=== PATIENT | male | born 1975 | race Caucasian/White ===

== ENCOUNTER 2016-07-25 19:16 | Emergency (ER) | payer OTHER ==
[~2016-07-25] VITALS: Ht 182.9 cm; Wt 120.0 kg
[~2016-07-25 19:16] MED LIST: ALLO300T2 PO; FLM4 PO; NRV5 PO; PRD10 PO
[2016-07-25 19:21] VITALS: TEMP 36.5; Ht 182.9 cm; Wt 120.0 kg
[2016-07-25] MEDS ORDERED: ONDANSETRON INJ 2 MG/ML 2 ML VIAL IV STA ×2 (19:29→20:43)
[2016-07-25] MEDS ORDERED: KETOROLAC TROMETHAMINE 30 MG/ML VIAL IV STA (19:29)
[2016-07-25] MEDS ORDERED: SODIUM CHLORIDE 0.9% 1000ML 1,000 ML IV STA (19:29)
[2016-07-25] MEDS: MoRPHine SULFATE 4 MG/ML 1 ML CARP\\VIAL IV PRN ×2 (19:41→21:03)
[2016-07-25 19:49] LABS: BASO % 0.3 %; BASO ABS # 0.03 K/uL (0-0.2); COMPLETE YES; EOS % 0.5 %; HEMATOCRIT 42.1 % (42-52); IG% 0.3 %; LYMPH % 19.9 %; LYMPH ABS # 1.86 K/uL (1.2-3.4); MEAN CELL VOLUME 85.6 fL (80-100); MEAN CORPUSCULAR HEMOGLOBIN 30.7 pg (25-34); MEAN CORPUSCULAR HGB CONC 35.9 g/dl (32-36); MEAN PLATELET VOLUME 9.2 fL (7.4-10.4); MONO % 10.1 %; NEUT % 68.9 %; PLATELET COUNT 217 K/uL (130-400); RED BLOOD COUNT 4.92 M/uL (4.7-6.1); WHITE BLOOD COUNT 9.36 K/uL (4.8-10.8)
[2016-07-25 19:56] LABS: MANUAL MICROSCOPIC REQUIRED? NO; REVIEW REQ? YES; URINE APPEARANCE CLOUDY (CLEAR); URINE BILIRUBIN NEG (NEG); URINE COLOR YELLOW; URINE NITRITE NEG (NEG); URINE SPECIFIC GRAVITY 1.019 (1.000-1.030); UROBILINOGEN NEG (NEG); ZZUR CULT IF INDIC CLEAN CATCH YES
[2016-07-25] MEDS ORDERED: TAMS0.4C38 PO ×2 (19:56→20:58)
[2016-07-25] MEDS ORDERED: ALLO300T2 PO (19:56)
[2016-07-25 20:12] LABS: ALT/SGPT 34 U/L (12-78); AST/SGOT 18 U/L (15-37); BLOOD UREA NITROGEN 18 mg/dl (7-18); CALCIUM 8.9 mg/dl (8.5-10.1); CARBON DIOXIDE 28 mmol/L (21-32); CHLORIDE 104 mmol/L (98-107); GLUCOSE 109 mg/dl (70-99); POTASSIUM 3.3 mmol/L (3.5-5.1); SODIUM 143 mmol/L (136-145)
[2016-07-25 20:14] LABS: ALKALINE PHOSPHATASE 63 U/L (45-117)
--- NOTE | 2016-07-25 20:17 | DIAGNOSTIC IMAGING REPORT ---
CT SCAN OF THE ABDOMEN AND PELVIS WITHOUT CONTRAST CLINICAL HISTORY: flank pain COMPARISON STUDY: 01/24/2016 TECHNIQUE: CT scan of the abdomen and pelvis was performed from the lung bases to the proximal femurs. Images are reviewed in the axial, sagittal, and coronal planes. IV contrast was not administered for this examination. CT DOSE: 2169.95 mGy.cm FINDINGS: Lower chest: There are minor basilar atelectatic changes present. Liver: There is mild hepatic steatosis. No focal masses are visualized in this noncontrast study. Gallbladder: Cholelithiasis Spleen: There is mild splenomegaly (14 cm) Pancreas: Unremarkable. Adrenal glands: Unremarkable. Kidneys: There is right-sided hydronephrosis and mild perinephric stranding. There is a 2 mm lower pole right renal calculus. There is a punctate lower pole left renal calculus. There is an obstructing 6 mm proximal right ureteral calculus at the L3 level. Bowel: There are no transition zones indicate bowel obstruction. There is no acute diverticulitis. By history the appendix is surgically absent. Peritoneum: There is no intraperitoneal free air or abdominal ascites. Vasculature: The abdominal aorta is normal in course and caliber. Adenopathy: None. Pelvic viscera: There are prostatic calcifications present. There is mild bladder wall thickening. Skeletal structures: No destructive osseous lesions are seen. IMPRESSION: 1. Obstructing 6 mm proximal right ureteral calculus 2. Bilateral nephrolithiasis 3. No evidence of bowel obstruction. No evidence of free air 4. Mild bladder wall thickening 5. Cholelithiasis 6. Hepatic steatosis. Mild splenomegaly. Electronically signed by: Jhonathan Mckenzie M.D. 07/25/2016 8:15 PM Dictated Date/Time: 07/25/2016 8:11 PM
[2016-07-25] MEDS ORDERED: TAMSULOSIN HCL 0.4 MG CAP PO ONE (20:30)
[2016-07-25] MEDS ORDERED: OXYC-106 PO (20:58)
[2016-07-25] MEDS ORDERED: ONDA4TAB10 SL (20:58)
[2016-07-25] MEDS ORDERED: PERCOCET HOME PACK PO ONE (21:00)
[2016-07-25] MEDS ORDERED: ONDANSETRON HOME PACK 4MG OD TAB PO ONE (21:00)
--- NOTE | 2016-07-25 21:00 | EMERGENCY ROOM VISIT NOTE ---
History Report prepared by Srinath: Lisette Quintero Under the Supervision of: Nedra CastilloO. First contact with patient: 19:25 Chief Complaint: FLANK PAIN Stated Complaint: R SIDE FLANK PAIN History of Present Illness The patient is a 41 year old male who presents to the Emergency Room with complaints of severe and persistent right sided flank pain starting about 2 hours ago. He also complains of nausea and vomiting. He has a history of blood clots. He denies fevers, chills, or any other complaints. He has a history of kidney stones. Source of History: patient Onset: about 2 hours ago Position: other (right sided flank ) Symptom Intensity: severe Timing: other (persistent) Associated Symptoms: + nausea, + vomiting, No chills, No fevers Review of Systems See HPI for pertinent positives & negatives. A total of 10 systems reviewed and were otherwise negative. Past Medical & Surgical Medical Problems: (1) Gout (2) HTN (hypertension) (3) Malignant melanoma of skin (4) Obesity (5) SVT (supraventricular tachycardia) Surgical Problems: (1) History of inguinal hernia repair (2) History of local excision of skin lesion (3) S/P appy Family History Kidney stones Social History Smoking Status: Never Smoker Drug Use: none Marital Status: in relationship Housing Status: lives with roommate Occupation Status: employed Current/Historical Medications Scheduled Allopurinol (Zyloprim), 450 MG PO DAILY Amlodipine Besylate (Amlodipine Besylate), 5 MG PO DAILY Ondasetron Odt (Zofran Odt), 4 MG SL Q6H Tamsulosin Hcl (Flomax), 0.4 MG PO HS Tamsulosin Hcl (Flomax), 0.4 MG PO HS Scheduled PRN Oxycodone/Acetaminophen 10MG/325MG (Percocet 10MG/325MG), 1 TAB PO Q4H PRN for Pain Allergies Coded Allergies: Aspirin (Verified Allergy, Unknown, 02/18/16) Codeine (Verified Adverse Reaction, Intermediate, MENTAL CHANGES/WILD, ) Physical Exam Vital Signs Date Time Temp Pulse Resp B/P Pulse Ox O2 Delivery O2 Flow Rate FiO2 07/25/16 19:21 36.5 63 18 161/104 98 Room Air Physical Exam CONSTITUTIONAL/VITAL SIGNS: Reviewed / noted above. GENERAL: Non-toxic in appearance. INTEGUMENTARY: Warm, dry, and [place]. HEAD: Normocephalic. EYES: without scleral icterus or trauma. ENT/OROPHARYNX: clear and moist. LYMPHADENOPATHY/NECK: Is supple without lymphadenopathy or meningismus. RESPIRATORY: Lungs clear and equal. CARDIOVASCULAR: Regular rate and rhythm. GI/ABDOMEN: Soft and nontender. No organomegaly or pulsatile mass. No rebound or guarding. Normal bowel sounds. EXTREMITIES: Warm and well perfused. BACK: Right CVA tenderness. NEUROLOGICAL: Intact without focal deficits. PSYCHIATRIC: normal affect. MUSCULOSKELETAL: Normally developed with good muscle tone. Medical Decision & Procedures ER Provider Diagnostic Interpretation: CT results as stated below per my review and radiologist interpretation: CT SCAN OF THE ABDOMEN AND PELVIS WITHOUT CONTRAST CLINICAL HISTORY: flank pain COMPARISON STUDY: 01/24/2016 TECHNIQUE: CT scan of the abdomen and pelvis was performed from the lung bases to the proximal femurs. Images are reviewed in the axial, sagittal, and coronal planes. IV contrast was not administered for this examination. CT DOSE: 2169.95 mGy.cm FINDINGS: Lower chest: There are minor basilar atelectatic changes present. Liver: There is mild hepatic steatosis. No focal masses are visualized in this noncontrast study. Gallbladder: Cholelithiasis Spleen: There is mild splenomegaly (14 cm) Pancreas: Unremarkable. Adrenal glands: Unremarkable. Kidneys: There is right-sided hydronephrosis and mild perinephric stranding. There is a 2 mm lower pole right renal calculus. There is a punctate lower pole left renal calculus. There is an obstructing 6 mm proximal right ureteral calculus at the L3 level. Bowel: There are no transition zones indicate bowel obstruction. There is no acute diverticulitis. By history the appendix is surgically absent. Peritoneum: There is no intraperitoneal free air or abdominal ascites. Vasculature: The abdominal aorta is normal in course and caliber. Adenopathy: None. Pelvic viscera: There are prostatic calcifications present. There is mild bladder wall thickening. Skeletal structures: No destructive osseous lesions are seen. IMPRESSION: 1. Obstructing 6 mm proximal right ureteral calculus 2. Bilateral nephrolithiasis 3. No evidence of bowel obstruction. No evidence of free air 4. Mild bladder wall thickening 5. Cholelithiasis 6. Hepatic steatosis. Mild splenomegaly. Electronically signed by: Jhonathan Mckenzie M.D. 07/25/2016 8:15 PM Dictated Date/Time: 07/25/2016 8:11 PM Laboratory Results 07/25/16 19:40 Red Blood Count 4.92, Mean Corpuscular Volume 85.6, Mean Corpuscular Hemoglobin 30.7, Mean Corpuscular Hemoglobin Concent 35.9, Mean Platelet Volume 9.2, Neutrophils (%) (Auto) 68.9, Lymphocytes (%) (Auto) 19.9, Monocytes (%) (Auto) 10.1, Eosinophils (%) (Auto) 0.5, Basophils (%) (Auto) 0.3, Neutrophils # (Auto ) 6.44, Lymphocytes # (Auto) 1.86, Monocytes # (Auto) 0.95, Eosinophils # (Auto ) 0.05, Basophils # (Auto) 0.03 07/25/16 19:40 Test 07/25/16 19:35 07/25/16 19:40 Urine Color YELLOW Urine Appearance CLOUDY (CLEAR) Urine pH 5.0 (4.5-7.5) Urine Specific [place] 1.019 (1.000-1.030) Urine Protein 1+ (NEG) Urine Glucose (UA) NEG (NEG) Urine Ketones NEG (NEG) Urine Occult Blood 3+ (NEG) Urine Nitrite NEG (NEG) Urine Bilirubin NEG (NEG) Urine Urobilinogen NEG (NEG) Urine Leukocyte Esterase NEG (NEG) Urine WBC (Auto) 1-5 /hpf (0-5) Urine RBC (Auto) >30 /hpf (0-4) Urine Hyaline Casts (Auto) 1-5 /lpf (0-5) Urine Epithelial Cells (Auto) 10-20 /lpf (0-5) Urine Bacteria (Auto) NEG (NEG) Urine Yeast (Auto) PRESENT (NONE PRSENT) White Blood Count 9.36 K/uL (4.8-10.8) Red Blood Count 4.92 M/uL (4.7-6.1) Hemoglobin 15.1 g/dL (14.0-18.0) Hematocrit 42.1 % (42-52) Mean Corpuscular Volume 85.6 fL (80-100) Mean Corpuscular Hemoglobin 30.7 pg (25-34) Mean Corpuscular Hemoglobin Concent 35.9 g/dl (32-36) Platelet Count 217 K/uL (130-400) Mean Platelet Volume 9.2 fL (7.4-10.4) Neutrophils (%) (Auto) 68.9 % Lymphocytes (%) (Auto) 19.9 % Monocytes (%) (Auto) 10.1 % Eosinophils (%) (Auto) 0.5 % Basophils (%) (Auto) 0.3 % Neutrophils # (Auto) 6.44 K/uL (1.4-6.5) Lymphocytes # (Auto) 1.86 K/uL (1.2-3.4) Monocytes # (Auto) 0.95 K/uL (0.11-0.59) Eosinophils # (Auto) 0.05 K/uL (0-0.5) Basophils # (Auto) 0.03 K/uL (0-0.2) RDW Standard Deviation 44.4 fL (36.4-46.3) RDW Coefficient of Variation 14.4 % (11.5-14.5) Immature Granulocyte % (Auto) 0.3 % Immature Granulocyte # (Auto) 0.03 K/uL (0.00-0.02) Anion Gap 11.0 mmol/L (3-11) Est Creatinine Clear Calc Drug Dose 87.6 ml/min Estimated GFR () 66.5 Estimated GFR (Non- 57.4 BUN/Creatinine Ratio 12.0 (10-20) Calcium Level 8.9 mg/dl (8.5-10.1) Total Bilirubin 0.4 mg/dl (0.2-1) Direct Bilirubin < 0.1 mg/dl (0-0.2) Aspartate Amino Transf (AST/SGOT) 18 U/L (15-37) Alanine Aminotransferase (ALT/SGPT) 34 U/L (12-78) Alkaline Phosphatase 63 U/L (45-117) Total Protein 7.4 gm/dl (6.4-8.2) Albumin 4.1 gm/dl (3.4-5.0) Lipase 101 U/L (73-393) Laboratory results as stated above per my review. Medications Administered Medications (Trade) Dose Ordered Sig/Kwasi Route Start Time Stop Time Status Last Admin Dose Admin Sodium Chloride (Nss 1000ml) 1,000 ml @ 999 mls/hr Q1H1M STAT IV 07/25/16 19:29 07/25/16 20:29 DC 07/25/16 19:40 999 MLS/HR Ondansetron HCl (Zofran Inj) 4 mg NOW STAT IV 07/25/16 19:29 07/25/16 19:30 DC 07/25/16 19:40 4 MG Ketorolac Tromethamine (Toradol Inj) 30 mg NOW STAT IV 07/25/16 19:29 07/25/16 19:30 DC 07/25/16 19:41 30 MG Morphine Sulfate (MoRPHine SULFATE INJ) 4 mg Q15M PRN IV 07/25/16 19:30 08/08/16 19:29 07/25/16 19:41 4 MG Tamsulosin HCl (Flomax Cap) 0.4 mg NOW ONCE PO 07/25/16 20:30 07/25/16 20:31 DC 07/25/16 20:39 0.4 MG Ondansetron HCl (Zofran Inj) 4 mg NOW STAT IV 07/25/16 20:43 07/25/16 20:44 DC 07/25/16 20:58 4 MG ED Course 1924: Previous medical records were reviewed. The patient was evaluated in room C08. A complete history and physical examination was performed. 1928: Toradol Inj 30 mg IV, Zofran Inj 4 mg IV, Sodium Chloride 1000 ml @ 999 mls/hr IV 1929: Morphine Sulfate 4 mg IV 2029: Flomax Cap 0.4 mg PO 2036: On reevaluation, the patient is resting comfortably. I discussed the results and findings with the patient. He verbalized agreement of the treatment plan. He was discharged home. 2042: Zofran Inj 4 mg IV Medical Decision Differential diagnosis: Etiologies such as renal colic, appendicitis, diverticulitis, mesenteric ischemia, aortic pathology, infections, inflammatory bowel disease, PUD, biliary pathology, UTI, as well as others were entertained. This is a 41-year-old male who presents to the ED with a chief complaint of right flank pain. The patient states that his symptoms started suddenly about 1 -2 hours ago. He reports some nausea and vomiting associated with his symptoms. The patient does report history of renal colic and kidney stones in the past that needed to be removed by urology. His vital signs are normal. His physical exam reveals some right CVA tenderness. CT scan of the abdomen and pelvis reveals a 6 mm proximal ureteral stone with some obstructive changes. Urine did not show infection. CBC and metabolic panel was unremarkable. The patient was treated with IV morphine, IV Zofran, IV fluids and IV Toradol. He was given by mouth Flomax. The patient appears comfortable. He is willing to attempt outpatient management. He has seen Dr. Orlando in the past for a 7 mm stone removal on the left. He will contact Dr. Orlando on Wednesday for follow-up. He will return for worsening. Impression Primary Impression: Renal colic on right side Additional Impression: Ureteral stone Scribe Attestation The scribe's documentation has been prepared under my direction and personally reviewed by me in its entirety. I confirm that the note above accurately reflects all work, treatment, procedures, and medical decision making performed by me. Departure Information Dispostion Home / Self-Care Prescriptions Tamsulosin Hcl (FLOMAX) 0.4 Mg Cap 0.4 MG PO HS, #10 CAP Prov: Eagle Ward D.O. 07/25/16 Ondasetron Odt (ZOFRAN ODT) 4 Mg Tab 4 MG SL Q6H for Nausea, #20 TAB Prov: Eagle Ward D.O. 07/25/16 Oxycodone/Acetaminophen 10MG/325MG (PERCOCET 10MG/325MG) Tab 1 TAB PO Q4H Y for Pain, #30 TAB Prov: Eagle Ward D.O. 07/25/16 Referrals Marifer Stone D.O. (PCP) Forms HOME CARE DOCUMENTATION FORM, IMPORTANT VISIT INFORMATION Patient Instructions Kidney Stones, My [facility] Additional Instructions Flomax as prescribed each evening. Percocet as prescribed. No driving within 6 hours of use. Do not take additional Tylenol while taking Percocet. Zofran: Allow one tablet to dissolve under the tongue every 6 hours as needed for nausea or vomiting. Take ibuprofen 600 mg every 6 hours. Strain urine for stone. Call Dr. Orlando office for follow-up. Call Wednesday for an appointment. Return for fevers or worsening. Problem Qualifiers
[2016-07-25 21:22] VITALS: BP 156/103; PULSE 84; O2SAT 95
== END 2016-07-25 21:23 | disposition home or self-care (01) ==
LOC: C.EDB 19:17 → C.EDC 21:23
DX: N23 Unspecified renal colic (principal); N20.1 Calculus of ureter; I10 Essential (primary) hypertension; Z85.828 Personal history of other malignant neoplasm of skin; E66.9 Obesity, unspecified; I47.1 Supraventricular tachycardia; Z84.1 Family history of disorders of kidney and ureter; Z79.899 Other long term (current) drug therapy

== ENCOUNTER 2016-09-19 14:20 | Emergency (ER) | payer OTHER ==
[~2016-09-19] VITALS: Ht 182.9 cm; Wt 122.2 kg
[~2016-09-19 14:20] MED LIST changes: -FLM4 PO; +ONDA4TAB10 SL; +OXYC-106 PO; -PRD10 PO; +TAMS0.4C38 PO
[2016-09-19 14:24] VITALS: TEMP 36.5; Ht 182.9 cm; Wt 122.2 kg
--- NOTE | 2016-09-19 14:41 | EMERGENCY ROOM VISIT NOTE ---
History Report prepared by Srinath: Porsha Rain Under the Supervision of: Dr. Vaughn Gonzales M.D. First contact with patient: 14:31 Chief Complaint: KIDNEY STONE Stated Complaint: POSSIBLE KIDNEY STONE History of Present Illness The patient is a 41 year old male who presents to the Emergency Room with complaints of worsening lower back pain starting a couple weeks ago. The patient rates his discomfort as a 9/10 in severity. The pain spreads into his groin. He has experienced this pain before with a kidney stone several months ago. He has had kidney stones removed from the right side in the past. He denies any leg pain or pain elsewhere. He denies any recent heavy lifting. Source of History: patient Onset: couple weeks ago Position: back (lower) Symptom Intensity: 9/10 Timing: worsening Note: Pt denies groin pain, leg pain. Review of Systems All systems have been listed, reviewed, and are negative other than those previously mentioned. Please see Additional Medical History Sheet. Past Medical & Surgical Medical Problems: (1) DVT (deep venous thrombosis) (2) Gout (3) HTN (hypertension) (4) Malignant melanoma of skin (5) Obesity (6) Pulmonary embolism (7) SVT (supraventricular tachycardia) Surgical Problems: (1) History of inguinal hernia repair (2) History of local excision of skin lesion (3) S/P appy Family History Cancer Diabetes mellitus Heart disease Hypertension Kidney stones Lung disease Social History Smoking Status: Never Smoker Alcohol Use: none Drug Use: none Marital Status: Housing Status: lives with family Occupation Status: unemployed Current/Historical Medications Scheduled Allopurinol (Zyloprim), 450 MG PO DAILY Tamsulosin Hcl (Flomax), 0.4 MG PO HS Scheduled PRN Oxycodone/Acetaminophen 5MG/325MG (Percocet 5MG/325MG), 1-2 TABLETS PO Q4H PRN for Pain Allergies Coded Allergies: Aspirin (Verified Allergy, Unknown, 09/19/16) Codeine (Verified Adverse Reaction, Intermediate, MENTAL CHANGES/WILD, ) Physical Exam Vital Signs Date Time Temp Pulse Resp B/P Pulse Ox O2 Delivery O2 Flow Rate FiO2 09/19/16 17:00 76 20 146/90 96 Room Air 09/19/16 14:24 36.5 103 18 140/97 94 Room Air Physical Exam GENERAL: Patient awake, alert, oriented x 3. Patient follows commands. Patient does not appear toxic. Patient is adequately hydrated and well- nourished. SKIN: No erythema, pallor, cyanosis or rash HEENT: Normal head, pupils equal, reactive to light and accommodation. LUNGS: Clear to auscultation. No wheezes, no rales, no rhonchi. HEART: No murmurs. No gallops. No rubs ABDOMEN: Left CVA tenderness. Tenderness along the left side of the abdomen and into the groin. No masses, no rebound, no hepatomegaly or splenomegaly. EXTREMITIES: No signs of trauma. No pedal or pretibial edema. No calf or thigh tenderness. NEUROLOGIC: Cranial nerves II-XII within normal limits. No gross motor sensory function deficits. Medical Decision & Procedures ER Provider Diagnostic Interpretation: Radiology results as stated below per my review and radiologist interpretation: EXAMINATION: RENAL ULTRASOUND CLINICAL HISTORY: Left flank pain. COMPARISON STUDY: 02/18/2016, CT scan dated 07/25/2016 FINDINGS: The right kidney measures 12.3 cm. The left kidney measures 12.1 cm. There is moderate right-sided hydronephrosis. There is no left-sided hydronephrosis. There are no renal masses. No bladder abnormalities are visualized. Bilateral ureteral jets were visualized. IMPRESSION : 1. Persistent right-sided hydronephrosis. 2. No evidence of left-sided hydronephrosis. Electronically signed by: Johnathan Mckenzie M.D. 09/19/2016 4:36 PM Dictated Date/Time: 09/19/2016 4:[address] SCAN OF THE ABDOMEN AND PELVIS WITHOUT CONTRAST CLINICAL HISTORY: Left flank pain COMPARISON STUDY: 07/25/2016 TECHNIQUE: CT scan of the abdomen and pelvis was performed from the lung bases to the proximal femurs. Images are reviewed in the axial, sagittal, and coronal planes. IV contrast was not administered for this examination. CT DOSE: 2165.39 mGy.cm FINDINGS: Lower chest: There are bibasal atelectatic changes present. Liver: There is hepatic steatosis. No focal masses are visualized. Gallbladder: Cholelithiasis Spleen: The spleen is mildly enlarged measuring 13.4 cm. Pancreas: Unremarkable. Adrenal glands: Unremarkable. Kidneys: There is persistent right-sided hydronephrosis. There is persistent right-sided hydroureter. There is a tangential proximal right ureteral calculi measuring 6 mm in aggregate. There is no left-sided hydronephrosis. Bowel: There are no transition zones indicate bowel obstruction. There is no acute diverticulitis. By history the appendix is absent. Peritoneum: There is no intraperitoneal free air or abdominal ascites. Vasculature: The abdominal aorta is normal in course and caliber. Adenopathy: None. Pelvic viscera: There are prostatic calcifications. Skeletal structures: There is a small L1-2 disc osteophyte complex. IMPRESSION: 1. Tangential proximal right ureteral calculi measuring 6 mm in aggregate. These are located at the L4 level. 2. No left renal or ureteral calculi identified 3. No evidence of bowel obstruction. No evidence of free air 4. Cholelithiasis 5. Hepatic steatosis 6. Mild splenomegaly Electronically signed by: Jhonathan Mckenzie M.D. 09/19/2016 6:05 PM Dictated Date/Time: 09/19/2016 5:57 PM Laboratory Results 09/19/16 14:55 Test 09/19/16 14:55 09/19/16 14:58 Red Blood Count 4.87 M/uL (4.7-6.1) Mean Corpuscular Volume 84.8 fL (80-100) Mean Corpuscular Hemoglobin 30.8 pg (25-34) Mean Corpuscular Hemoglobin Concent 36.3 g/dl (32-36) RDW Standard Deviation 42.1 fL (36.4-46.3) RDW Coefficient of Variation 13.8 % (11.5-14.5) Mean Platelet Volume 9.3 fL (7.4-10.4) Urine Color YELLOW Urine Appearance CLEAR (CLEAR) Urine pH 5.5 (4.5-7.5) Urine Specific [place] 1.017 (1.000-1.030) Urine Protein NEG (NEG) Urine Glucose (UA) NEG (NEG) Urine Ketones NEG (NEG) Urine Occult Blood NEG (NEG) Urine Nitrite NEG (NEG) Urine Bilirubin NEG (NEG) Urine Urobilinogen NEG (NEG) Urine Leukocyte Esterase NEG (NEG) Laboratory results as stated above per my review. Medications Administered Medications (Trade) Dose Ordered Sig/Kwasi Route Start Time Stop Time Status Last Admin Dose Admin Ondansetron HCl (Zofran Inj) 4 mg PRN PRN IV 09/19/16 14:45 10/19/16 14:44 09/19/16 15:01 4 MG Morphine Sulfate (MoRPHine SULFATE INJ) 8 mg STK-MED ONCE .ROUTE 09/19/16 14:50 09/19/16 14:51 DC 09/19/16 15:01 8 MG Morphine Sulfate (MoRPHine SULFATE INJ) 8 mg STK-MED ONCE .ROUTE 09/19/16 17:02 09/19/16 17:03 DC 09/19/16 16:58 8 MG ED Course 1432: Past medical records reviewed. The patient was evaluated in room C4. A complete history and physical examination was performed. 1445: Zofran Inj 4 mg IV, Morphine Sulfate 8 mg IV. 165: I reevaluated the patient. He is still having pain. He will be going for a CT scan. 170: Morphine Sulfate 8 mg IV. 183: I discussed the imaging studies with Dr. Mckenzie, [facility] - radiology. 184: Upon reevaluation, the patient is still having pain. I discussed today's findings with him. He will be given one more dose of pain medication here and some Percocet to take home. He verbalized agreement of the treatment plan. He was discharged home. 1900: Oxycodone/Acetaminophen 1 homepack PO. Medical Decision Differential diagnoses: pyelonephritis, kidney stones, musculoskeletal pain. The patient complains of severe pain in the left side which radiates into his left groin. The pain is worse when he moves. The patient does not appear to have a hernia. Urinalysis reveals no hematuria. Ultrasound was performed first revealing no hydronephrosis on the left side. He does have hydronephrosis on the right side. CT was done as a follow-up study but again reveals no left ureteral calculi. A brief evaluation of the aorta was negative but that was performed without contrast. At this point, I do not believe the patient has an aortic dissection or aneurysm and therefore I will not repeat a CT with contrast. The patient may have pain solely due to a musculoskeletal cause. The patient was given a home pack of Percocet and a prescription for the same. He is to strain his urine. The patient should follow-up with his family physician or return here as needed. [place] Drug Monitoring Program Search Results: patient reviewed within database, no issues identified Consults Time Called: 1836 Consulting Physician: Dr. Mckenzie, [facility] - radiology Returned Call: [phone] I discussed the imaging studies with him. Impression Primary Impression: Left flank pain Scribe Attestation The scribe's documentation has been prepared under my direction and personally reviewed by me in its entirety. I confirm that the note above accurately reflects all work, treatment, procedures, and medical decision making performed by me. Departure Information Dispostion Home / Self-Care Prescriptions Oxycodone/Acetaminophen 5MG/325MG (PERCOCET 5MG/325MG) Tab 1-2 TABLETS PO Q4H Y for Pain, #20 TAB Prov: Vaughn Gonzales M.D. 09/19/16 Patient Instructions My [facility] Additional Instructions 600 mg ibuprofen every 6 hours until pain is resolved. 1-2 Percocet every 4 hours as needed for more severe pain. Do not drive or operate machinery while taking Percocet. Apply warm heat intermittently to your left flank over the next 24 hours. Follow-up with your family physician within the next 3 days. Return here sooner if the pain is getting worse. Strain your urine.
[2016-09-19] MEDS ORDERED: MoRPHine SULFATE 10 MG/ML CARP/VIAL IV PRN (14:45)
[2016-09-19] MEDS ORDERED: ONDANSETRON INJ 2 MG/ML 2 ML VIAL IV PRN (14:45)
[2016-09-19] MEDS ORDERED: MoRPHine SULFATE 4 MG/ML 1 ML CARP\\VIAL ONE ×2 (14:50→17:02)
[2016-09-19 15:18] LABS: HEMATOCRIT 41.3 % (42-52); MEAN CELL VOLUME 84.8 fL (80-100); MEAN CORPUSCULAR HEMOGLOBIN 30.8 pg (25-34); MEAN CORPUSCULAR HGB CONC 36.3 g/dl (32-36); MEAN PLATELET VOLUME 9.3 fL (7.4-10.4); PLATELET COUNT 209 K/uL (130-400); RED BLOOD COUNT 4.87 M/uL (4.7-6.1); WHITE BLOOD COUNT 5.96 K/uL (4.8-10.8)
[2016-09-19 15:23] LABS: URINE APPEARANCE CLEAR (CLEAR); URINE BILIRUBIN NEG (NEG); URINE COLOR YELLOW; URINE NITRITE NEG (NEG); URINE PH 5.5 (4.5-7.5); URINE SPECIFIC GRAVITY 1.017 (1.000-1.030); UROBILINOGEN NEG (NEG); ZZUR CULT IF INDIC CLEAN CATCH NO
[2016-09-19 16:08] LABS: MANUAL MICROSCOPIC REQUIRED? NO; REVIEW REQ? NO
--- NOTE | 2016-09-19 16:38 | DIAGNOSTIC IMAGING REPORT ---
EXAMINATION: RENAL ULTRASOUND CLINICAL HISTORY: Left flank pain. COMPARISON STUDY: 02/18/2016, CT scan dated 07/25/2016 FINDINGS: The right kidney measures 12.3 cm. The left kidney measures 12.1 cm. There is moderate right-sided hydronephrosis. There is no left-sided hydronephrosis. There are no renal masses. No bladder abnormalities are visualized. Bilateral ureteral jets were visualized. IMPRESSION : 1. Persistent right-sided hydronephrosis. 2. No evidence of left-sided hydronephrosis. Electronically signed by: Jhonathan Mckenzie M.D. 09/19/2016 4:36 PM Dictated Date/Time: 09/19/2016 4:34 PM
--- NOTE | 2016-09-19 18:07 | DIAGNOSTIC IMAGING REPORT ---
CT SCAN OF THE ABDOMEN AND PELVIS WITHOUT CONTRAST CLINICAL HISTORY: Left flank pain COMPARISON STUDY: 07/25/2016 TECHNIQUE: CT scan of the abdomen and pelvis was performed from the lung bases to the proximal femurs. Images are reviewed in the axial, sagittal, and coronal planes. IV contrast was not administered for this examination. CT DOSE: 2165.39 mGy.cm FINDINGS: Lower chest: There are bibasal atelectatic changes present. Liver: There is hepatic steatosis. No focal masses are visualized. Gallbladder: Cholelithiasis Spleen: The spleen is mildly enlarged measuring 13.4 cm. Pancreas: Unremarkable. Adrenal glands: Unremarkable. Kidneys: There is persistent right-sided hydronephrosis. There is persistent right-sided hydroureter. There is a tangential proximal right ureteral calculi measuring 6 mm in aggregate. There is no left-sided hydronephrosis. Bowel: There are no transition zones indicate bowel obstruction. There is no acute diverticulitis. By history the appendix is absent. Peritoneum: There is no intraperitoneal free air or abdominal ascites. Vasculature: The abdominal aorta is normal in course and caliber. Adenopathy: None. Pelvic viscera: There are prostatic calcifications. Skeletal structures: There is a small L1-2 disc osteophyte complex. IMPRESSION: 1. Tangential proximal right ureteral calculi measuring 6 mm in aggregate. These are located at the L4 level. 2. No left renal or ureteral calculi identified 3. No evidence of bowel obstruction. No evidence of free air 4. Cholelithiasis 5. Hepatic steatosis 6. Mild splenomegaly Electronically signed by: Jhonathan Mckenzie M.D. 09/19/2016 6:05 PM Dictated Date/Time: 09/19/2016 5:57 PM
[2016-09-19] MEDS ORDERED: OXYC-57 PO (18:53)
[2016-09-19] MEDS ORDERED: PERCOCET HOME PACK PO ONE (19:00)
[2016-09-19 19:44] VITALS: BP 138/90; PULSE 79; O2SAT 96
== END 2016-09-19 19:46 | disposition home or self-care (01) ==
LOC: C.EDB 14:21 → C.EDC 19:46
DX: R10.30 Lower abdominal pain, unspecified (principal); I10 Essential (primary) hypertension; M10.9 Gout, unspecified; Z86.711 Personal history of pulmonary embolism; Z86.718 Personal history of other venous thrombosis and embolism; Z85.820 Personal history of malignant melanoma of skin; Z88.5 Allergy status to narcotic agent; Z88.6 Allergy status to analgesic agent; Z80.9 Family history of malignant neoplasm, unspecified; Z83.3 Family history of diabetes mellitus; Z82.49 Family history of ischemic heart disease and other diseases of the circulatory system; Z84.1 Family history of disorders of kidney and ureter

== ENCOUNTER 2019-07-06 11:52 | Observation (INO) ==
--- OUTSIDE RECORDS SUMMARY | 2019-07-06 11:54 | External Medical Summary | Continuity of Care Document ---
:1975 Author Name Jimbo Ann, Provider Address Unavailable Unavailable , Care Team Providers Name Role Phone Meredith Ramirez Unavailable [email or web address] ALESIA III, E Unavailable Unavailable Unavailable Unavailable Unavailable Problems Snoring (786.09) (R06.83) Pulmonary embolism (415.19) (I26.99) Hypertension (401.9) (I10) Gout (274.9) (M10.9) Esophageal reflux (530.81) (K21.9) Fatigue (780.79) (R53.83) Obstructive sleep apnea (327.23) (G47.33) Allergies and Adverse Reactions Aspirin TABS (Allergy) Tylenol with Codeine #3 TABS (Allergy) Tylenol with Codeine #4 TABS (Allergy) Medications traMADol HCl TABS Refills: 0 predniSONE TABS Refills: 0 Allopurinol TABS; Take 450mg Daily Refills: 0 Warfarin Sodium TABS Refills: 0 amLODIPine Besylate 10 MG Oral Tablet; TAKE 1 TABLET DAILY. Quantity: 30 Refills: 11 PriLOSEC OTC 20 MG Oral Tablet Delayed Release; TAKE 1 TABLET DAILY. Marissa Morales Start: 01-Jun-2013 Quantity: 30 Refills: 6 Procedures History of Appendectomy Status: Complete d History of Hernia Repair Status: Complet ed Immunizations Immunizations not documented Family History Unknown Family Member Family history of Gout (V18.19) Status: Active Comments : Family History Family history of Crohn's (Granulomatous) Status: Active Comments: Family History Colitis Social History - Smoking Status Never smoker Plan of Treatment Planned Observations Planned Goals not documented Results No Known Results Results not documented Encounters Appointment; Meredith Wylie CRNP 22-Dec-2017 7:15 Encounter Diagnosis: Problem not documented Appointment; Meredith Wylie CRNP 23-Dec-2017 8:15 Encounter Diagnosis: Problem not documented
[2019-07-06] MEDS ORDERED: ONDANSETRON INJ 2 MG/ML 2 ML VIAL IV STA (12:07)
[2019-07-06 12:31] LABS: Basophils # (auto) 0.02 K/uL (0-0.2); Basophils % (auto) 0.4 %; Eosinophils # (auto) 0.06 K/uL (0-0.5); Eosinophils % (auto) 1.3 %; Hematocrit (blood only) 43.4 % (42-52); Hemoglobin 15.6 g/dL (14.0-18.0); Immature Granulocytes # (auto) 0.01 K/uL (0.00-0.02); Immature Granulocytes % (auto) 0.2 %; Lymphocytes # (auto) 1.14 K/uL (1.2-3.4); Lymphocytes % (auto) 24.3 %; Mean Corpuscular Hemoglobin 31.3 pg (25-34); Mean Corpuscular Hgb Conc 35.9 g/dL (32-36); Mean Platelet Volume 9.4 fL (7.4-10.4); Monocytes # (auto) 0.55 K/uL (0.11-0.59); Monocytes % (auto) 11.7 %; Neutrophils # (auto) 2.91 K/uL (1.4-6.5); Neutrophils % (auto) 62.1 %; Platelet Count 187 K/uL (130-400); RDW Coefficient of Variation 14.2 % (11.5-14.5); RDW Standard Deviation 44.2 fL (36.4-46.3); Red Blood Count 4.99 M/uL (4.7-6.1); White Blood Count 4.69 K/uL (4.8-10.8)
[2019-07-06 12:38] LABS: Appearance Urine Clear (Clear); Bacteria Urine Automated Negative (Negative); Blood Urine Negative (Negative); Color Urine Dark Yellow; Epithelial Cell Urine Auto 0-5 /lpf (0-5); Glucose Urine UA Negative (Negative); Ketones Urine Negative (Negative); Leukocyte Esterase Urine Negative (Negative); Nitrite Urine Negative (Negative); Protein Urine 1+ (Negative); RBC Urine Automated 0-4 /hpf (0-4); Specific Gravity Urine 1.018 (1.000-1.030); Urobilinogen Urine Negative (Negative); WBC Urine Automated 0 /hpf (0-5); pH Urine 6.5 (4.5-7.5)
[2019-07-06 12:49] LABS: Albumin Level 3.9 gm/dl (3.4-5.0); BUN Creatinine Ratio 11.8 (10-20); Calcium 9.1 mg/dl (8.5-10.1); Creatinine Clr Calc Pharmacy 118.3 ml/min; Est GFR (African American) 89.8; Est GFR (Non-African American) 77.5; Potassium 3.7 mmol/L (3.5-5.1)
[2019-07-06 12:52] LABS: Bilirubin,Total 2.1 mg/dl (0.2-1); Globulin 3.8 gm/dl (2.5-4.0); Total Protein 7.7 gm/dl (6.4-8.2)
[2019-07-06 13:04] LABS: Bilirubin Urine 1+ (Negative); Ictotest Urine Positive (Negative)
--- NOTE | 2019-07-06 14:04 | Ultrasound Report ---
ABDOMINAL ULTRASOUND, RIGHT UPPER QUADRANT HISTORY: Right upper quadrant abdominal pain.. COMPARISON: Abdomen and pelvis CT 09/05/2018. FINDINGS: Pancreas: Obscured by overlying bowel gas. Liver: The liver is echogenic consistent with fatty change. Enlarged measuring 24 cm in length. Gallbladder: Multiple small gallstones. No gallbladder wall thickening or pericholecystic fluid. CBD: 5 mm in diameter. Right kidney: Not well visualized due to the poor acoustic penetration from the fatty liver. No hydro nephrosis. IMPRESSION: 1. Cholelithiasis. No gallbladder wall thickening. 2. Hepatomegaly demonstrating fatty change. 3. The pancreas is obscured by overlying bowel gas and the right kidney is not well visualized. ACT 112: Negative or not required by law. Electronically signed by: Roberto Hannon M.D. 07/06/2019 2:03 PM
[2019-07-06] MEDS ORDERED: ONDANSETRON INJ 2 MG/ML 2 ML VIAL IV PRN (15:17)
[2019-07-06] MEDS ORDERED: MoRPHine SULFATE 2 MG/ML CARP IV PRN (15:17)
[2019-07-06] MEDS ORDERED: MoRPHine SULFATE 4 MG/ML 1 ML CARP\\VIAL IV PRN (15:17)
[2019-07-06] MEDS: MoRPHine SULFATE 4 MG/ML 1 ML CARP\\VIAL ONE ×2 (15:36→15:38)
[2019-07-06] MEDS: MoRPHine SULFATE 10 MG/ML CARP/VIAL IV PRN ×2 (15:37→21:21)
--- NOTE | 2019-07-06 15:38 | History & Physical Report ---
Date of Service July 06, 2019 Assessment & Plan (1) Abdominal pain, RUQ: 44-year-old male who presented to the emergency room with right upper quadrant abdominal pain, nausea, bloating postprandial after fatty meal x2. No leukocytosis. T bili elevated at 2.1. AST elevated at 423 ALT elevated at 396. Alk phos and lipase within normal limits. Gallbladder ultrasound showing small gallstones however no signs of acute cholecystitis or dilated common bile duct. Abdominal examination shows right upper quadrant tenderness to light palpation however otherwise soft no rigidity or peritonitis. Plan: Discussed with patient ultrasound showing gallstones and elevated labs concerning for possible common bile duct stone versus stone passing. Would like to obtain an MRCP for further evaluation and consult gastroenterology for further recommendations. If + choledocholithaisis hopefully can perform ERCP and lap pedro tomorrow. Will admit patient for observation to Med/Surg floor. Start IV fluids, IV cefoxitin 2 gm every 6 hours, IV morphine as needed for pain, IV Zofran as needed for nausea. Keep NPO Repeat a.m. labs including CBC, CMP, and lipase SCDs for DVT prophylaxis We will await results of MRCP and GI consultation. If no signs of choledocholithiasis may consider laparoscopic cholecystectomy for symptomatic cholelithiasis if symptoms not improved. (2) Biliary colic: Plan as above (3) Total bilirubin, elevated: (4) Elevated LFTs: Dr. Morgan was present during my examination and agrees with above. History of Present Illness Chief Complaint: Right upper quadrant pain with associated nausea Primary Care Provider: DO Geremias Mittalothy is a 44-year-old male history of gout, hypertension, GERD who presented to the emergency room today with complaint of right upper quadrant abdominal pain that began around 6 PM after dinner last night. Associated nausea and bloating. Describes pain is sharp and severe originally and then improved throughout the evening. States he had pizza for dinner and pain was immediately following eating with associated nausea and bloating. Throughout the night he seemed to do okay and then had pop tarts for breakfast which again caused severe pain which persisted until presenting to the ED. Amish states he had similar pain in August of last year in which he had shoulder and abdominal pain. CT scan of the abdomen and pelvis showed no acute findings. He has a history of kidney stones however states this pain is different. Denies of any fevers, chills, chest pain, shortness of breath, diarrhea, constipation, blood in the stools, acholic stools, black tarry stools or difficulty urinating. ER work-up included labs which showed no leukocytosis. Total bilirubin elevated at 2.1 LFTs elevated with AST 423, ALT 396. Alk phos and lipase within normal limits. Ultrasound of the abdomen showed small gallstones however no gallbladder wall thickening or pericholecystic fluid. Common bile duct measuring 5 mm. Ultrasound does show fatty liver. Amish states his pain is improved however he has received pain medication. Never had any issues with his liver in the past. Was told he had gallstones when he had procedure for his kidney stones. Allergies Allergy/AdvReac Type Severity Reaction Status Date / Time aspirin Allergy Unknown Unknown Verified 07/06/19 13:42 codeine AdvReac Intermediate MENTAL Verified 07/06/19 13:42 CHANGES/WILD Home Medications Home Medications Medication Instructions Recorded Confirmed Type allopurinol 450 mg PO DAILY 09/05/18 07/06/19 History amlodipine 5 mg PO DAILY 09/05/18 07/06/19 History pantoprazole 40 mg PO DAILY 09/05/18 07/06/19 History Past Med/Surg History Medical History (Updated 07/06/19 @ 15:44 by Vivi Childress PA-C) GERD (gastroesophageal reflux disease) Gout (Chronic) HTN (hypertension) (Chronic) Malignant melanoma of skin (Chronic) Obesity (Chronic) SVT (supraventricular tachycardia) (Chronic) Surgical History History of inguinal hernia repair (Resolved) S/P appy (Resolved) Family History Other No pertinent family history in first degree relatives Social History Preferred Language: Danish Feels Safe at Home: Yes Smoking Status: Never smoker Review of Systems Review of Systems: All systems reviewed & are unremarkable except as noted in HPI & below Physical Exam Constitutional: WD/WN, vitals as above no acute distress and not ill appearing Respiratory: normal respiratory effort, lungs clear to auscultation Cardiovascular: RRR, no murmur, no edema Gastrointestinal (Abdomen): Inspection/Auscultation: abdomen normal to inspection and + abdominal surgical scar (Right lower quadrant appendectomy scar); abdomen not distended and + abnormal bowel sounds Percussion/Palpation: + abdomen tender (Right upper quadrant), + guarding (Positive Adan sign) and abdomen soft; abdomen not rigid Obese abdomen Skin: no rashes, warm and dry Psychiatric: A+Ox3, euthymic affect Results & Data Vital Signs (Past 12 Hours) Vital Signs Temp Pulse Pulse Resp BP BP Pulse Ox 07/06/19 14:30 72 15 129/84 07/06/19 14:00 77 18 07/06/19 13:54 77 18 135/91 99 07/06/19 13:49 77 16 98 07/06/19 13:48 83 21 135/91 07/06/19 13:02 79 14 97 07/06/19 13:01 81 19 145/90 H 97 07/06/19 13:00 83 23 96 07/06/19 12:41 82 21 95 07/06/19 12:33 84 22 116/96 95 07/06/19 12:31 84 20 96 07/06/19 12:00 36.9 C 81 20 179/106 H 96 Laboratory Results 07/06/19 07/06/19 07/06/19 Range/Units 12:21 12:21 12:21 WBC 4.69 L (4.8-10.8) K/uL RBC 4.99 (4.7-6.1) M/uL Hgb 15.6 (14.0-18.0) g/dL Hct 43.4 (42-52) % MCV 87.0 (80-100) fL MCH 31.3 (25-34) pg MCHC 35.9 (32-36) g/dL RDW Std Deviation 44.2 (36.4-46.3) fL RDW Coeff of Ciera 14.2 (11.5-14.5) % Plt Count 187 (130-400) K/uL MPV 9.4 (7.4-10.4) fL Immature Gran % (Auto) 0.2 % Neut % (Auto) 62.1 % Lymph % (Auto) 24.3 % Emanuel % (Auto) 11.7 % Eos % (Auto) 1.3 % Baso % (Auto) 0.4 % Immature Gran # (Auto) 0.01 (0.00-0.02) K/uL Neut # (Auto) 2.91 (1.4-6.5) K/uL Lymph # (Auto) 1.14 L (1.2-3.4) K/uL Emanuel # (Auto) 0.55 (0.11-0.59) K/uL Eos # (Auto) 0.06 (0-0.5) K/uL Baso # (Auto) 0.02 (0-0.2) K/uL Sodium 139 (136-145) mmol/L Potassium 3.7 (3.5-5.1) mmol/L Chloride 105 (98-107) mmol/L Carbon Dioxide 30 (21-32) mmol/L Anion Gap 4.0 (3-11) BUN 14 (7-18) mg/dl Creatinine 1.15 (0.6-1.4) mg/dl Est Cr Clr Drug Dosing 118.3 ml/min Est GFR ( Amer) 89.8 Est GFR (Non-Af Amer) 77.5 BUN/Creatinine Ratio 11.8 (10-20) Glucose 98 (70-99) mg/dl Calcium 9.1 (8.5-10.1) mg/dl Total Bilirubin 2.1 H (0.2-1) mg/dl AST 423 H (15-37) U/L ALT 396 H (12-78) U/L Alkaline Phosphatase 86 (45-117) U/L Total Protein 7.7 (6.4-8.2) gm/dl Albumin 3.9 (3.4-5.0) gm/dl Globulin 3.8 (2.5-4.0) gm/dl Albumin/Globulin Ratio 1.0 (0.9-2) Lipase 133 (73-393) U/L Urine Color Dark Yellow Urine Appearance Clear (Clear) Urine pH 6.5 (4.5-7.5) Ur Specific [place] 1.018 (1.000-1.030) Urine Protein 1+ H (Negative) Urine Glucose (UA) Negative (Negative) Urine Ketones Negative (Negative) Urine Blood Negative (Negative) Urine Nitrite Negative (Negative) Urine Bilirubin 1+ H (Negative) Urine Urobilinogen Negative (Negative) Ur Leukocyte Esterase Negative (Negative) Urine WBC (Auto) 0 (0-5) /hpf Urine RBC (Auto) 0-4 (0-4) /hpf U Hyaline Cast (Auto) 1-5 (0-5) /lpf U Epithel Cells (Auto) 0-5 (0-5) /lpf Urine Bacteria (Auto) Negative (Negative) Diagnostic Findings ABDOMINAL ULTRASOUND, RIGHT UPPER QUADRANT HISTORY: Right upper quadrant abdominal pain.. COMPARISON: Abdomen and pelvis CT 09/05/2018. FINDINGS: Pancreas: Obscured by overlying bowel gas. Liver: The liver is echogenic consistent with fatty change. Enlarged measuring 24 cm in length. Gallbladder: Multiple small gallstones. No gallbladder wall thickening or pericholecystic fluid. CBD: 5 mm in diameter. Right kidney: Not well visualized due to the poor acoustic penetration from the fatty liver. No hydronephrosis. IMPRESSION: 1. Cholelithiasis. No gallbladder wall thickening. 2. Hepatomegaly demonstrating fatty change. 3. The pancreas is obscured by overlying bowel gas and the right kidney is not well visualized. Code Status & VTE Plan VTE Prophylaxis Plan VTE Prophylaxis will be ordered: Yes
--- NOTE | 2019-07-06 16:38 | Magnetic Resonance Report ---
MR MRCP CLINICAL HISTORY: 44 years-old Male presenting with RUQ pain t. bili 2.1 elev LFTs r/o choledocholith ia. TECHNIQUE: Multisequence, multiplanar MR imaging of the abdomen was performed without the use of intr avenous contrast. Dedicated MRCP protocol was utilized. 3-D volumetric and/or maximum intensity proje ction (MIP) images were subsequently reconstructed for review. IV contrast: None. COMPARISON: CT from 09/05/2018 and right upper quadrant ultrasound from 07/06/2019. FINDINGS: Localizer images: Unremarkable. Lung bases: Normal heart size. No pericardial or pleural effusion. Lung base clear. Liver: Normal morphology. Biliary: Conventional intrahepatic biliary bifurcation. No intrahepatic or extrahepatic biliary ducta l dilatation. No choledocholithiasis. Mild gallbladder wall thickening and gallstones are evident. Th ere is no significant pericholecystic inflammatory change. The gallbladder is not significantly diste nded. Note made of a low medial insertion of the cystic duct. Pancreas: Moderate parenchymal atrophy. Spleen: Normal noncontrast appearance. Adrenal glands: Normal noncontrast appearance. Kidneys and ureters: Normal noncontrast appearance. No hydronephrosis. Normal ureters. Bowel: Normal noncontrast appearance. No bowel obstruction. Peritoneal cavity: No free fluid. Lymph nodes: No gross lymphadenopathy allowing for noncontrast technique. Vasculature: Normal noncontrast appearance. Abdominal wall: Normal. Musculoskeletal: Normal. IMPRESSION: 1. Cholelithiasis with gallbladder wall thickening in the overall nondistended gallbladder. Findings are equivocal for cholecystitis. If symptomatology is concerning, nuclear medicine HIDA scan is brenna mmended for further evaluation. 2. Low medial insertion of the cystic duct. 3. Conventional intrahepatic biliary ductal bifurcation. 4. No choledocholithiasis or biliary ductal dilatation. ACT 112: Negative or not required by law. Electronically signed by: Mina Cohen M.D. 07/06/2019 4:36 PM
[2019-07-06] MEDS: SODIUM CHLORIDE 0.9% 1000ML 1,000 ML IV SCH (16:43)
--- NOTE | 2019-07-06 20:06 | Emergency Department Note ---
Entered by Lissa Mensah acting as a scribe for Jayy Olivera MD History of Present Illness General Chief complaint: Abdominal Pain Stated complaint: AB PAIN Time Seen by Provider: 07/06/19 12:06 Source: patient History of Present Illness Provider complaint: Abdominal Pain Onset (ago): day(s) 1 Location: abdomen (Upper) and right Radiation: back Pain Consistency: + constant Maximum Pain Intensity: 8 Relieved By: + none Exacerbated By: + eating and + other (Deep breaths) Associated symptoms: + nausea/vomiting (Positive nausea. Negative vomiting. ); no fever/chills The patient is a 44 year old male w/ PMHx of obesity, SVT, malignant melanoma of the skin, HTN, appendectomy, and inguinal hernia repair who presents to the ED w/ CC of constant right sided upper abdominal pain beginning last n ight around 6pm.The patient states that his pain radiates into his back and is exacerbated by deep breaths and eating. The patient also states that his symptoms are not relieved by anything specific. The patient reports experiencing nausea but denies any vomiting or fever/chills. The patient notes that it feels like a "bloated cramp" and has a history of hernia surgery and an appendectomy. Home Medications Home Medications Medication Instructions Recorded Confirmed Type allopurinol 450 mg PO DAILY 09/05/18 07/06/19 History amlodipine 5 mg PO DAILY 09/05/18 07/06/19 History pantoprazole 40 mg PO DAILY 09/05/18 07/06/19 History Allergies Allergy/AdvReac Type Severity Reaction Status Date / Time aspirin Allergy Unknown Unknown Verified 07/06/19 13:42 codeine AdvReac Intermediate MENTAL Verified 07/06/19 13:42 CHANGES/WILD Past Med/Surg History Medical History (Updated 07/06/19 @ 15:44 by Vivi Childress PA-C) GERD (gastroesophageal reflux disease) Gout (Chronic) HTN (hypertension) (Chronic) Malignant melanoma of skin (Chronic) Obesity (Chronic) SVT (supraventricular tachycardia) (Chronic) Surgical History History of inguinal hernia repair (Resolved) S/P appy (Resolved) Family History Other No pertinent family history in first degree relatives Social History Preferred Language: French Communication Ability: Effective Beliefs That Will Affect Care: None Current Living Situation: Spouse and Family Other Information That Helps Us Care for You: No Feels Safe at Home: Yes Safety Concerns: Feels Safe At This Time Smoking Status: Never smoker Hx Alcohol Use: No Hx Substance Use: No Review of Systems See HPI for pertinent positives & negatives. and A total of 10 systems reviewed and were otherwise negative Physical Exam Vital Signs Vital Signs - 24 hr 07/06/19 12:00 07/06/19 12:31 07/06/19 12:33 Temperature 36.9 C Temperature Source Oral Pulse Rate 81 84 84 Pulse Rate [Apical] Pulse Rate from SpO2 Sensor 83 Pulse Rhythm Regular Pulse Rhythm [Apical] Pulse Strength Normal Pulse Strength [Apical] Respiratory Rate 20 20 22 Respiratory Effort / Characteristics Non-Labored Spontaneous Respiratory Depth Normal Respiratory Pattern Regular Blood Pressure 179/106 H 116/96 Blood Pressure [Left Arm] Blood Pressure Mean 130 103 Blood Pressure Mean [Left Arm] Blood Pressure Position [Left Arm] Pulse Oximetry 96 96 95 Oxygen Delivery Method Room Air Room Air Sepsis Recent Fever Within 48 Hours No Sepsis Action Taken by Nursing No Action Required 07/06/19 12:41 07/06/19 13:00 07/06/19 13:01 Temperature Temperature Source Pulse Rate 82 83 81 Pulse Rate [Apical] Pulse Rate from SpO2 Sensor 81 83 83 Pulse Rhythm Pulse Rhythm [Apical] Pulse Strength Pulse Strength [Apical] Respiratory Rate 21 23 19 Respiratory Effort / Characteristics Respiratory Depth Respiratory Pattern Blood Pressure 145/90 H Blood Pressure [Left Arm] Blood Pressure Mean 107 Blood Pressure Mean [Left Arm] Blood Pressure Position [Left Arm] Pulse Oximetry 95 96 97 Oxygen Delivery Method Sepsis Recent Fever Within 48 Hours Sepsis Action Taken by Nursing 07/06/19 13:02 07/06/19 13:48 07/06/19 13:49 Temperature Temperature Source Pulse Rate 79 83 77 Pulse Rate [Apical] Pulse Rate from SpO2 Sensor 81 Pulse Rhythm Pulse Rhythm [Apical] Pulse Strength Pulse Strength [Apical] Respiratory Rate 14 21 16 Respiratory Effort / Characteristics Respiratory Depth Respiratory Pattern Blood Pressure 135/91 Blood Pressure [Left Arm] Blood Pressure Mean 104 Blood Pressure Mean [Left Arm] Blood Pressure Position [Left Arm] Pulse Oximetry 97 98 Oxygen Delivery Method Sepsis Recent Fever Within 48 Hours Sepsis Action Taken by Nursing 07/06/19 13:54 07/06/19 14:00 07/06/19 14:30 Temperature Temperature Source Pulse Rate 77 72 Pulse Rate [Apical] 77 Pulse Rate from SpO2 Sensor Pulse Rhythm Pulse Rhythm [Apical] Regular Pulse Strength Pulse Strength [Apical] Normal Respiratory Rate 18 18 15 Respiratory Effort / Characteristics Non-Labored Spontaneous Respiratory Depth Normal Respiratory Pattern Regular Blood Pressure 129/84 Blood Pressure [Left Arm] 135/91 Blood Pressure Mean 99 Blood Pressure Mean [Left Arm] 105 Blood Pressure Position [Left Arm] Lying Pulse Oximetry 99 Oxygen Delivery Method Room Air Sepsis Recent Fever Within 48 Hours Sepsis Action Taken by Nursing 07/06/19 15:00 Temperature Temperature Source Pulse Rate 82 Pulse Rate [Apical] Pulse Rate from SpO2 Sensor Pulse Rhythm Pulse Rhythm [Apical] Pulse Strength Pulse Strength [Apical] Respiratory Rate 17 Respiratory Effort / Characteristics Respiratory Depth Respiratory Pattern Blood Pressure Blood Pressure [Left Arm] Blood Pressure Mean Blood Pressure Mean [Left Arm] Blood Pressure Position [Left Arm] Pulse Oximetry Oxygen Delivery Method Sepsis Recent Fever Within 48 Hours Sepsis Action Taken by Nursing GENERAL: Well appearing, well nourished, NAD, non-toxic. EYE EXAM: Normal conjunctiva. PERRL, no anisocoria and EOM's grossly intact w/o pain. OROPHARYNX: Moist mucous membranes. Grossly normal dentition. NECK: Supple, no nuchal rigidity, no adenopathy, non-tender. No signs of meningismus. LUNGS: Clear to auscultation. Normal chest wall mechanics. HEART: NSR, no MRG. ABDOMEN: Abdomen soft, RUQ pain, normo-active bowel sounds, no masses, no rebound and positive guarding. BACK: No CVA TTP. SKIN: No rashes and no bruising. UPPER EXTREMITIES: Upper extremities are grossly normal. LOWER EXTREMITIES: No pitting edema. No calf pain. NEURO EXAM: A&O x3, cranial nerves II-XII grossly intact, normal speech, moves all 4 extremities on command w/o issue. Course Course 1211: Past medical records reviewed. The patient was evaluated in room C01B. A complete history and physical exam was performed. 1213: Continuous Cardiac Monitoring: An order was placed for continuous cardiac monitoring. The monitor shows a rate of 82 with sinus rhythm. 1400: I reevaluated the patient and he is feeling okay. 1421: I spoke with Vivi Childress PA-C who works with Dr. Thai Flowers about the patient's case and she will come and see the patient. 1517: I spoke with Dr. Thai Flowers about the patient's case and he will accept the patient for further evaluation. Administered Medications Sodium Chloride (Nss 1000ml) 1,000 mls @ 125 mls/hr IV .Q8H RUTH Stop: 08/05/19 15:29 Last Admin: 07/06/19 16:43 Dose: 125 mls/hr Documented by: [id number] Morphine Sulfate (Morphine Sulfate) 4 mg IV Q3H PRN PRN Reason: SEVERE Pain (Scale 7,8,9,10) Stop: 07/20/19 15:16 Last Admin: 07/06/19 15:37 Dose: 4 mg Documented by: [id number] Discontinued Medications Morphine Sulfate (Morphine Sulfate) Confirm Administered Dose 4 mg .ROUTE .STK- MED ONE Stop: 07/06/19 15:33 Last Admin: 07/06/19 15:38 Dose: Not Given Documented by: [id number] Ondansetron HCl (Zofran) 4 mg IV NOW STA Stop: 07/06/19 12:08 Last Admin: 07/06/19 12:28 Dose: 4 mg Documented by: [id number] Medical Decision Making Differential Diagnosis Differential diagnosis: Etiologies such as biliary colic, cholecystitis, hepatitis, pancreatitis, cardiac disease, pancreatitis, gastritis, peptic ulcer disease, appendicitis, cystitis, diverticulitis, mesenteric ischemia, inflammatory bowel disease, ileus, bowel obstruction, testicular torsion, aortic pathology, shingles, as well as others were considered. Medical Records Attestation: I reviewed the patient's medical records. Home Medications Current Medication List: was personally reviewed by me Laboratory Data Attestation: I reviewed the patient's lab results. Result diagrams: 07/06/19 12:21 07/06/19 12:21 Lab Results 07/06/19 07/06/19 07/06/19 Range/Units 12:21 12:21 12:21 WBC 4.69 L (4.8-10.8) K/uL RBC 4.99 (4.7-6.1) M/uL Hgb 15.6 (14.0-18.0) g/dL Hct 43.4 (42-52) % MCV 87.0 (80-100) fL MCH 31.3 (25-34) pg MCHC 35.9 (32-36) g/dL RDW Std Deviation 44.2 (36.4-46.3) fL RDW Coeff of [place] 14.2 (11.5-14.5) % Plt Count 187 (130-400) K/uL MPV 9.4 (7.4-10.4) fL Immature Gran % (Auto) 0.2 % Neut % (Auto) 62.1 % Lymph % (Auto) 24.3 % [place] % (Auto) 11.7 % Eos % (Auto) 1.3 % Baso % (Auto) 0.4 % Immature Gran # (Auto) 0.01 (0.00-0.02) K/uL Neut # (Auto) 2.91 (1.4-6.5) K/uL Lymph # (Auto) 1.14 L (1.2-3.4) K/uL [place] # (Auto) 0.55 (0.11-0.59) K/uL Eos # (Auto) 0.06 (0-0.5) K/uL Baso # (Auto) 0.02 (0-0.2) K/uL Sodium 139 (136-145) mmol/L Potassium 3.7 (3.5-5.1) mmol/L Chloride 105 (98-107) mmol/L Carbon Dioxide 30 (21-32) mmol/L Anion Gap 4.0 (3-11) BUN 14 (7-18) mg/dl Creatinine 1.15 (0.6-1.4) mg/dl Est Cr Clr Drug Dosing 118.3 ml/min Est GFR ( Amer) 89.8 Est GFR (Non-Af Amer) 77.5 BUN/Creatinine Ratio 11.8 (10-20) Glucose 98 (70-99) mg/dl Calcium 9.1 (8.5-10.1) mg/dl Total Bilirubin 2.1 H (0.2-1) mg/dl AST 423 H (15-37) U/L ALT 396 H (12-78) U/L Alkaline Phosphatase 86 (45-117) U/L Total Protein 7.7 (6.4-8.2) gm/dl Albumin 3.9 (3.4-5.0) gm/dl Globulin 3.8 (2.5-4.0) gm/dl Albumin/Globulin Ratio 1.0 (0.9-2) Lipase 133 (73-393) U/L Urine Color Dark Yellow Urine Appearance Clear (Clear) Urine pH 6.5 (4.5-7.5) Ur Specific [place] 1.018 (1.000-1.030) Urine Protein 1+ H (Negative) Urine Glucose (UA) Negative (Negative) Urine Ketones Negative (Negative) Urine Blood Negative (Negative) Urine Nitrite Negative (Negative) Urine Bilirubin 1+ H (Negative) Urine Urobilinogen Negative (Negative) Ur Leukocyte Esterase Negative (Negative) Urine WBC (Auto) 0 (0-5) /hpf Urine RBC (Auto) 0-4 (0-4) /hpf U Hyaline Cast (Auto) 1-5 (0-5) /lpf U Epithel Cells (Auto) 0-5 (0-5) /lpf Urine Bacteria (Auto) Negative (Negative) Imaging Data Radiologist's Impression: Radiology results as stated below per my review and the radiologist's interpretation: ABDOMINAL ULTRASOUND, RIGHT UPPER QUADRANT HISTORY: Right upper quadrant abdominal pain.. COMPARISON: Abdomen and pelvis CT 09/05/2018. FINDINGS: Pancreas: Obscured by overlying bowel gas. Liver: The liver is echogenic consistent with fatty change. Enlarged measuring 24 cm in length. Gallbladder: Multiple small gallstones. No gallbladder wall thickening or pericholecystic fluid. CBD: 5 mm in diameter. Right kidney: Not well visualized due to the poor acoustic penetration from the fatty liver. No hydronephrosis. IMPRESSION: 1. Cholelithiasis. No gallbladder wall thickening. 2. Hepatomegaly demonstrating fatty change. 3. The pancreas is obscured by overlying bowel gas and the right kidney is not well visualized. ACT 112: Negative or not required by law. Electronically signed by: Roberto Hannon M.D. 07/06/2019 2:03 PM Blood Pressure Blood Pressure Findings: Elevated blood pressure Blood Pressure Disposition: further management by hospitalist PATRICK Hazel The patient is a 44 year old male w/ PMHx of obesity, SVT, malignant melanoma of the skin, HTN, appendectomy, and inguinal hernia repair who presents to the ED w/ CC of constant right sided upper abdominal pain beginning last night around 6pm. Patient was seen and evaluated the bedside. The patient did present with co ncern of pain after eating. The patient denies any alcohol use. The patient does have significant right upper quadrant pain she had blood work obtained along with right upper quadrant ultrasound. The patient's blood work does show elevated T bili and LFTs. Lipase is within normal limits. The patient does not appear jaundiced and is not febrile. Patient pain did improve with medications. Right upper quadrant ultrasound does not show any CBD dilatation or gallbladder wall thickening. The patient does have gallstones. Given the patient significant abdominal discomfort and associated LFT elevation I did speak with the on-call general surgeon who did evaluate the patient and the patient was to be admitted with a GI consult. Patient was given strict follow-up, discharge, and return precautions. All questions were answered. Patient was deemed suitable for outpatient follow-up at this time. Patient agreed with the plan of care and was safely discharged home. Impression & Plan Acute hepatitis, Biliary colic, Abdominal pain, RUQ Discharge Plan Visit Data *Final* Discharge Date/Time: 07/06/19 16:39 Chief Complaint: Abdominal Pain Stated Complaint: AB PAIN ED Provider: Jayy Olivera Discharge Problem: Acute hepatitis, Biliary colic, Abdominal pain, RUQ Patient Disposition: Admitted As Inpatient Discharge Instructions Interventions: ED Discharge Assessment Last Done: 07/06/19 16:39 The scribe's documentation has been prepared under my direction and personally reviewed by me in its entirety. I confirm that the note above accurately reflects all work, treatment, procedures, and medical decision making performed by me.
[2019-07-07] MEDS: SODIUM CHLORIDE 0.9% 1000ML 1,000 ML IV SCH ×3 (01:21→19:43)
[2019-07-07 05:26] LABS: Basophils # (auto) 0.03 K/uL (0-0.2); Basophils % (auto) 0.7 %; Eosinophils # (auto) 0.07 K/uL (0-0.5); Eosinophils % (auto) 1.7 %; Hematocrit (blood only) 41.1 % (42-52); Hemoglobin 14.7 g/dL (14.0-18.0); Immature Granulocytes # (auto) 0.01 K/uL (0.00-0.02); Immature Granulocytes % (auto) 0.2 %; Lymphocytes # (auto) 1.16 K/uL (1.2-3.4); Lymphocytes % (auto) 28.9 %; Mean Corpuscular Hemoglobin 31.1 pg (25-34); Mean Corpuscular Hgb Conc 35.8 g/dL (32-36); Mean Corpuscular Volume 87.1 fL (80-100); Mean Platelet Volume 9.3 fL (7.4-10.4); Monocytes # (auto) 0.62 K/uL (0.11-0.59); Monocytes % (auto) 15.4 %; Neutrophils # (auto) 2.13 K/uL (1.4-6.5); Neutrophils % (auto) 53.1 %; Platelet Count 174 K/uL (130-400); RDW Coefficient of Variation 14.3 % (11.5-14.5); Red Blood Count 4.72 M/uL (4.7-6.1); White Blood Count 4.02 K/uL (4.8-10.8)
[2019-07-07 05:53] LABS: Albumin Level 3.4 gm/dl (3.4-5.0); BUN Creatinine Ratio 10.9 (10-20); Calcium 8.6 mg/dl (8.5-10.1); Creatinine Clr Calc Pharmacy 128.1 ml/min; Est GFR (African American) 100.3; Est GFR (Non-African American) 86.5; Potassium 3.8 mmol/L (3.5-5.1)
[2019-07-07 05:56] LABS: Globulin 3.3 gm/dl (2.5-4.0); Total Protein 6.7 gm/dl (6.4-8.2)
[2019-07-07] MEDS: AMLODIPINE BESYLATE 5 MG TAB PO SCH (08:07)
[2019-07-07] MEDS: PANTOprazole 40 MG TAB PO SCH (08:07)
--- NOTE | 2019-07-07 08:13 | Gastrointestinal Consultation ---
Date of Consultation July 07, 2019 Assessment & Plan (1) Elevated LFTs: Most likely this presentation: interval elevation of T Bili and transaminases, RUQ pain and cholelithiasis suggests that he has or at least has recently passes gallstones/sludge that is or was at least transiently obs tructing the common bile duct. Plan to go forward with ERCP this afternoon by Dr. Ferrara. Present on Admission?: Yes (2) Total bilirubin, elevated: (3) Abdominal pain, RUQ: Supervising Physician Co-Signing Physician Notes I have personally seen and examined the patient with ABDIRIZAK Monterroso. Her note reflects my exam and findings. I agree with her impression and plan. Labs and symptoms concerning for choledocholithiasis. Agree with pre op ERCP. Johnathon Gross M.D. History of Present Illness Reason for Consultation: RUQ abd pain, t. bili 2.1, elevated LFTS Requesting Physician: Dr. Altamirano Attending Physician: Edson Morgan MD History of Present Illness Mr. Amish Campos is a 44 yr old male pt of Dr. Juarez with a hx of GERD, Gout, obesity, Melanoma, SVT. He presented to the ED yesterday for RUQ pain. GI is consulted for elevated LFT, speficially to consider EUS/ERCP. On arrival, US and MRCP with gallstones, no evidence of choledocholithiasis or bile duct dilation. There was mention of gallbladder wall thickening on MRCP. T Bili is mildly elevated at 2.1 (arrival) -> 2.0 (today). Transaminases are elevated: AST 423->318, ALT 396->635, Alk Phos and lipase have both remained normal. Fatty liver is mentioned on US but LFTs were normal when checked in August 2018. The pt tells me that the pain began soon after eating pizza for dinner last evening. Pain is right upper quadrant, moderately severe, accompanied by nausea. The pain eased off a few hours after arrival here yesterday, though he still has some mild right upper quadrant pain and some intermittent nausea. He is hemodynamically stable awake alert and oriented. Afebrile without leukocytosis. He has not had fevers chills sweats vomiting melena hematochezia diarrhea or constipation. No jaundice or icterus. He recalls 2 other similar episodes of pain that did not persist in the past year. He had been told a few years ago that he has gallstones. He had never previously been told that he has fatty liver. Allergies Allergy/AdvReac Type Severity Reaction Status Date / Time aspirin Allergy Unknown Unknown Verified 07/06/19 13:42 codeine AdvReac Intermediate MENTAL Verified 07/06/19 13:42 CHANGES/WILD Home Medications Home Medications Medication Instructions Recorded Confirmed Type allopurinol 450 mg PO DAILY 09/05/18 07/06/19 History amlodipine 5 mg PO DAILY 09/05/18 07/06/19 History pantoprazole 40 mg PO DAILY 09/05/18 07/06/19 History Patient History Medical History GERD (gastroesophageal reflux disease) Gout (Chronic) HTN (hypertension) (Chronic) Malignant melanoma of skin (Chronic) Obesity (Chronic) SVT (supraventricular tachycardia) (Chronic) Surgical History History of inguinal hernia repair (Resolved) S/P appy (Resolved) Family History Other No pertinent family history in first degree relatives Social History Preferred Language: Mauritian Communication Ability: Effective Beliefs That Will Affect Care: None Current Living Situation: Spouse and Family Other Information That Helps Us Care for You: No Feels Safe at Home: Yes Safety Concerns: Feels Safe At This Time Smoking Status: Never smoker Hx Alcohol Use: No Hx Substance Use: No Review of Systems Review of Systems: ROS: Gen: Denies weakness, fevers, weight loss Eyes: No eye redness, or pain, no recent vision changes Resp: No SOB, no cough Cardio: No palpitations/irregular beats, no chest pain GI: See HPI : Denies pain on urination Skin: No jaundice, itching or new rashes Physical Exam Constitutional: WD/WN, vitals as above Eyes: PERRL, conjunctivae normal, anicteric sclerae ENMT: external ear and nose normal, oropharynx normal Neck: trachea midline, no thyromegaly Respiratory: normal respiratory effort, lungs clear to auscultation Cardiovascular: RRR, no murmur, no edema Gastrointestinal (Abdomen): Percussion/Palpation: + abdomen tender (MIld RUQ with deep palpation) and abdomen soft Skin: no rashes, warm and dry Neurologic: PERRL, EOMI, accommodation nl, no face palsy, no dysarthria Psychiatric: A+Ox3, euthymic affect Lymphatic: no cervical or axillary lymphadenopathy Results & Data Vital Signs (Past 12 Hours) Vital Signs Temp Pulse Resp BP Pulse Ox 07/07/19 07:29 36.6 C 69 19 137/85 95 07/06/19 22:57 36.8 C 76 16 122/75 94 Laboratory Results T Bili 2.1->2.0, AST 423->318, ALT 396->635 Diagnostic Findings US 07/06/19: 1. Cholelithiasis. No gallbladder wall thickening. 2. Hepatomegaly demonstrating fatty change. 3. The pancreas is obscured by overlying bowel gas and the right kidney is not well visualized. MRCP 07/06/19: 1. Cholelithiasis with gallbladder wall thickening in the overall nondistended gallbladder. Findings are equivocal for cholecystitis. If symptomatology is concerning, nuclear medicine HIDA scan is recommended for further evaluation. 2. Low medial insertion of the cystic duct. 3. Conventional intrahepatic biliary ductal bifurcation. 4. No choledocholithiasis or biliary ductal dilatation.
--- NOTE | 2019-07-07 11:06 | Anesthesiology Consultation ---
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 Consults Requested none History Surgery Operation Date: 07/07/19 09:50 Proposed Procedures p Endoscopic Retrograde Cholangiopancreatogram - Robert Ferrara MD Operation Date: 07/07/19 12:50 Proposed Procedures p Laparoscopic Cholecystectomy - Edson Morgan MD Height/Weight Height: 6 ft Weight: 133.1 kg Allergies Allergy/AdvReac Type Severity Reaction Status Date / Time aspirin Allergy Unknown Unknown Verified 07/06/19 13:42 codeine AdvReac Intermediate MENTAL Verified 07/06/19 13:42 CHANGES/WILD Medications Home Medications Medication Instructions Recorded Confirmed Last Taken allopurinol 450 mg PO DAILY 09/05/18 07/06/19 07/05/19 amlodipine 5 mg PO DAILY 09/05/18 07/06/19 07/05/19 pantoprazole 40 mg PO DAILY 09/05/18 07/06/19 07/05/19 Active Medications Generic Name Dose Route Start Last Admin Trade Name Freq PRN Reason Stop Dose Admin Amlodipine Besylate 5 mg 07/07/19 09:00 07/07/19 08:07 Norvasc PO 08/06/19 08:59 5 mg DAILY RUTH Administration Sodium Chloride 1,000 mls @ 125 mls/hr 07/06/19 15:30 07/07/19 09:34 Nss 1000ml IV 08/05/19 15:29 125 mls/hr .Q8H RUTH Administration Morphine Sulfate 4 mg 07/06/19 15:17 07/06/19 21:21 Morphine Sulfate IV 07/20/19 15:16 4 mg Q3H PRN Administration SEVERE Pain (Scale 7,8,9,10) Ondansetron HCl 4 mg 07/06/19 15:17 07/07/19 10:13 Zofran IV 08/05/19 15:16 4 mg Q4H PRN Administration Nausea And Vomiting Pantoprazole Sodium 40 mg 07/07/19 09:00 07/07/19 08:07 Protonix PO 08/06/19 08:59 40 mg DAILY RUTH Administration NPO Date Last Intake of Fluids: 07/06/19 Date Last Intake of Solids: 07/06/19 Time Last Intake of Solids: 17:00 Past Medical History Medical History GERD (gastroesophageal reflux disease) Gout (Chronic) HTN (hypertension) (Chronic) Malignant melanoma of skin (Chronic) Obesity (Chronic) SVT (supraventricular tachycardia) (Chronic) Past Family History Family History Other No pertinent family history in first degree relatives Past Surgical History Surgical History History of inguinal hernia repair (Resolved) S/P appy (Resolved) Social History Smoking Status: Never smoker Hx Alcohol Use: No Hx Substance Use: No Physical Exam Vital Signs Last Vital Signs Temp 36.7 C 07/07/19 07:50 Pulse 80 07/07/19 07:50 Resp 18 07/07/19 07:50 BP 141/92 H 07/07/19 10:05 Pulse Ox 94 07/07/19 07:50 Testing Laboratory Results 07/07/19 04:52 07/07/19 04:52 Urine Color Dark Yellow 07/06/19 12:21 Urine Appearance Clear (Clear) 07/06/19 12:21 Urine pH 6.5 (4.5-7.5) 07/06/19 12:21 Ur Specific [place] 1.018 (1.000-1.030) 07/06/19 12:21 Urine Protein 1+ (Negative) H 07/06/19 12:21 Urine Glucose (UA) Negative (Negative) 07/06/19 12:21 Urine Ketones Negative (Negative) 07/06/19 12:21 Urine Nitrite Negative (Negative) 07/06/19 12:21 Ur Leukocyte Esterase Negative (Negative) 07/06/19 12:21 Urine WBC (Auto) 0 /hpf (0-5) 07/06/19 12:21 Urine RBC (Auto) 0-4 /hpf (0-4) 07/06/19 12:21 U Hyaline Cast (Auto) 1-5 /lpf (0-5) 07/06/19 12:21 U Epithel Cells (Auto) 0-5 /lpf (0-5) 07/06/19 12:21 Urine Bacteria (Auto) Negative (Negative) 07/06/19 12:21
[2019-07-07] MEDS ORDERED: fentaNYL citrate 100 MCG/2 ML VIAL ONE ×3 (15:18→18:32)
[2019-07-07] MEDS ORDERED: ONDANSETRON INJ 2 MG/ML 2 ML VIAL ONE (15:18)
[2019-07-07] MEDS ORDERED: PROPOFOL IV EMULSION 10 MG/ML 20 ML VIAL IV ONE (15:18)
[2019-07-07] MEDS ORDERED: SUCCINYLCHOLINE CHLORIDE 20 MG/ML 10 ML VIAL ONE (15:18)
[2019-07-07] MEDS ORDERED: LIDOCAINE HCL 2% 2 ML VIAL/AMP(20MG/ML) INFIL ONE (15:18)
[2019-07-07] MEDS ORDERED: ROCURONIUM BROMIDE 10 MG/ML 5 ML VIAL ONE ×7 (15:18→18:03)
[2019-07-07] MEDS ORDERED: MIDAZOLAM HCL 1 MG/ML 2ML VIAL ONE (15:18)
[2019-07-07] MEDS ORDERED: PHENYLEPHRINE 100MCG/ML 5ML SYR IV PRN (15:28)
[2019-07-07] MEDS ORDERED: ePHEDrine sulfate 50 MG/ML AMP IV PRN (15:28)
[2019-07-07] MEDS ORDERED: ONDANSETRON INJ 2 MG/ML 2 ML VIAL IV PRN (15:28)
[2019-07-07] MEDS ORDERED: fentaNYL citrate 100 MCG/2 ML VIAL IV PRN (15:28)
[2019-07-07] MEDS ORDERED: MEPERIDINE HCL 25 MG/ML CARP IV PRN (15:28)
[2019-07-07] MEDS ORDERED: LABETALOL HCL IV 5 MG/ML 20ML IV PRN (15:28)
[2019-07-07] MEDS ORDERED: ATROPINE SULFATE 0.1 MG/ML 10ML SYR IV PRN (15:28)
[2019-07-07] MEDS ORDERED: HYDROmorphone INJ 1 MG/ML SYRINGE IV PRN (15:28)
--- NOTE | 2019-07-07 15:45 | History & Physical Bridge Note ---
Date of Service July 07, 2019 History & Physical Bridge Note I have examined the patient, reviewed the History & Physical and in the interval since the performance of the History & Physical I have noted the following changes of clinical significance: no changes noted EGD/EUS/ERCP today
[2019-07-07] MEDS ORDERED: LIDOCAINE HCL 1% 20 ML VIAL ONE (15:47)
[2019-07-07] MEDS ORDERED: BACITRACIN OINT 15 GM TUBE ONE (15:47)
[2019-07-07] MEDS ORDERED: BUPIVACAINE 0.5 % 5 MG/1 ML MPF 30ML VIAL ONE (15:47)
[2019-07-07] MEDS ORDERED: CONRAY 60% 50 ML VIAL ONE (15:48)
--- NOTE | 2019-07-07 16:08 | History & Physical Bridge Note ---
Date of Service July 07, 2019 History & Physical Bridge Note I have examined the patient, reviewed the History & Physical and in the interval since the performance of the History & Physical I have noted the following changes of clinical significance: no changes noted Supervising Physician Co-Signing Physician Notes I have personally seen and examined the patient with ABDIRIZAK Monterroso. Her note reflects my exam and findings. I agree with her impression and plan. Labs and symptoms concerning for choledocholithiasis. Agree with pre op ERCP. Johnathon Gross M.D.
[2019-07-07] MEDS ORDERED: LARYING-O-JET KIT (LTA) ONE (16:10)
[2019-07-07] MEDS ORDERED: INDOMETHACIN 50 MG SUPP PR ONE (17:08)
--- NOTE | 2019-07-07 17:18 | GI REPORT ---
Patient Name: Amish Campos Procedure Date: 07/07/2019 4:05 PM Date of : 1975 Admit Type: Inpatient Age: 44 Gender: Male Attending MD: Robert Ferrara MD Procedure: Upper GI endoscopy Providers: Robert Ferrara MD Referring MD: Pravin Valenzuela Md Indications: Epigastric abdominal pain Medicines: General Anesthesia Complications: No immediate complications. Estimated Blood Loss: Estimated blood loss: none. Procedure: Pre-Anesthesia Assessment: - Prior to the procedure, a History and Physical was performed, and patient medications, allergies and sensitivities were reviewed. The patient's tolerance of previous anesthesia was reviewed. - The risks and benefits of the procedure and the sedation options and risks were discussed with the patient. All questions were answered and informed consent was obtained. - Patient identification and proposed procedure were verified prior to the procedure by the physician and the nurse. The procedure was verified in the procedure room. - Pre-procedure physical examination revealed no contraindications to sedation. After obtaining informed consent, the endoscope was passed under direct vision. Throughout the procedure, the patient's blood pressure, pulse, and oxygen saturations were monitored continuously. The Endoscope was introduced through the mouth, and advanced to the second part of duodenum. The upper GI endoscopy was accomplished without difficulty. The patient tolerated the procedure well. Findings: The examined esophagus was normal. Two 6 mm sessile polyps with no stigmata of recent bleeding were found in the gastric antrum. The polyp was removed with a cold snare. Resection and retrieval were complete. Verification of patient identification for the specimen was done by the physician and nurse using the patient's name and date. The duodenal bulb and second portion of the duodenum were normal. Impression: - Normal esophagus. - Two gastric polyps. Resected and retrieved. - Normal duodenal bulb and second portion of the duodenum. Recommendation: - Await pathology results. - Perform an upper endoscopic ultrasound (UEUS) today. Robert Ferrara MD 07/07/2019 5:18:19 PM This report has been signed electronically. Note Initiated On: 07/07/2019 4:05 PM Number of Addenda: 0 I attest to the content of the Intraoperative Record and orders documented therein, exceptions below {[id number]}
[2019-07-07] MEDS ORDERED: CEFAZOLIN 3000MG 72.5 ML IV ONE (17:32)
--- NOTE | 2019-07-07 17:36 | GI REPORT ---
Patient Name: Amish Campos Procedure Date: 07/07/2019 4:17 PM Date of : 1975 Admit Type: Inpatient Age: 44 Gender: Male Attending MD: Robert Ferrara MD Procedure: Upper EUS Providers: Robert Ferrara MD Referring MD: Pravin Valenzuela Md Indications: Elevated liver enzymes, Suspected choledocholithiasis Medicines: General Anesthesia Complications: No immediate complications. Estimated Blood Loss: Estimated blood loss: none. Procedure: Pre-Anesthesia Assessment: - Prior to the procedure, a History and Physical was performed, and patient medications, allergies and sensitivities were reviewed. The patient's tolerance of previous anesthesia was reviewed. - The risks and benefits of the procedure and the sedation options and risks were discussed with the patient. All questions were answered and informed consent was obtained. - Patient identification and proposed procedure were verified prior to the procedure by the physician and the nurse. The procedure was verified in the procedure room. - Pre-procedure physical examination revealed no contraindications to sedation. After obtaining informed consent, the endoscope was passed under direct vision. Throughout the procedure, the patient's blood pressure, pulse, and oxygen saturations were monitored continuously. The scope was introduced through the mouth, and advanced to the second part of duodenum. The upper EUS was accomplished without difficulty. The patient tolerated the procedure well. Findings: ENDOSONOGRAPHIC FINDING: : There was no sign of significant endosonographic abnormality in the ampulla. No masses were identified. One stone was visualized endosonographically in the common bile duct. The stone was round. It was hyperechoic and characterized by shadowing. CBD measured 6 mm in diameter. Many stones were visualized endosonographically in the gallbladder. They were hyperechoic and characterized by shadowing. There was no sign of significant endosonographic abnormality in the entire pancreas. The pancreatic duct measured up to 1.5 mm in diameter. Pancreas divisum was suspected. There was abnormal echogenicity in the left lobe of the liver suggestive of fatty liver. There was no sign of significant endosonographic abnormality in the visualized portion of the left adrenal gland. Impression: - There was no sign of significant pathology in the ampulla. - One stone was visualized endosonographically in the common bile duct. - Many stones were visualized endosonographically in the gallbladder. - There was no sign of significant pathology in the entire pancreas. - Pancreas divisum was suspected, likely incomplete. - There was abnormal echogenicity in the left lobe of the liver. - Endosonographic images of the left adrenal gland were unremarkable. Recommendation: - Perform an ERCP today. Robert Ferrara MD 07/07/2019 5:36:22 PM This report has been signed electronically. Note Initiated On: 07/07/2019 4:17 PM Number of Addenda: 0 I attest to the content of the Intraoperative Record and orders documented therein, exceptions below {[id number]}
[2019-07-07] MEDS ORDERED: CEFAZOLIN 250 MG/ML 1 GM VIAL ONE ×2 (17:38)
--- NOTE | 2019-07-07 17:46 | GI REPORT ---
Patient Name: Amish Campos Procedure Date: 07/07/2019 4:31 PM Date of : 1975 Admit Type: Inpatient Age: 44 Gender: Male Attending MD: Robert Ferrara MD Procedure: ERCP Providers: Robert Ferrara MD Referring MD: Pravin Valenzuela Md Indications: Abnormal endoscopic ultrasound of the biliary system, For therapy of bile duct stone(s), Elevated liver enzymes Medicines: General Anesthesia Complications: No immediate complications. Estimated Blood Loss: Estimated blood loss: none. Procedure: Pre-Anesthesia Assessment: - Prior to the procedure, a History and Physical was performed, and patient medications, allergies and sensitivities were reviewed. The patient's tolerance of previous anesthesia was reviewed. - The risks and benefits of the procedure and the sedation options and risks were discussed with the patient. All questions were answered and informed consent was obtained. - Patient identification and proposed procedure were verified prior to the procedure by the physician and the nurse. The procedure was verified in the procedure room. - Pre-procedure physical examination revealed no contraindications to sedation. After obtaining informed consent, the scope was passed under direct vision. Throughout the procedure, the patient's blood pressure, pulse, and oxygen saturations were monitored continuously. The Scope was introduced through the mouth, and advanced to the duodenum and used to inject contrast into the bile duct. The ERCP was accomplished without difficulty. The patient tolerated the procedure well. Findings: The natural science curator film was normal. The esophagus was successfully intubated under direct vision. The scope was advanced to a normal major papilla in the descending duodenum without detailed examination of the pharynx, larynx and associated structures, and upper GI tract. The upper GI tract was grossly normal. The minor papilla was prominent. The ventral pancreatic duct was inadvertently cannulated with the short-nosed traction sphincterotome. The wire was kept in place for double wire technique. A 0.035 inch straight Acrobat wire was passed into the biliary tree. The Fusion OMNI sphincterotome was passed over the guidewire and the bile duct was then deeply cannulated. The guidewire was removed from the pancreatic duct. Contrast was injected. I personally interpreted the bile duct images. Ductal flow of contrast was adequate. Image quality was adequate. Contrast extended to the main bile duct. Opacification of the main bile duct, cystic duct, gallbladder and left and right hepatic ducts and all intrahepatic branches was successful. The maximum diameter of the ducts was 8 mm. The middle third of the main bile duct contained one stone. There is low insertion of the cystic duct. Biliary sphincterotomy was made with a monofilament traction (standard) sphincterotome using ERBE electrocautery. There was no post-sphincterotomy bleeding. The biliary tree was swept with an 11.5 mm balloon starting at the bifurcation. One stone was removed. No stones remained. One 10 Fr by 9 cm plastic biliary stent with a single external flap and a single internal flap was placed into the common bile duct. Bile flowed through the stent. The stent was in good position. Indomethacin 100 mg was given via suppository to decrease the risk of post-ERCP pancreatitis (PEP). Impression: - Choledocholithiasis was found. Complete removal was accomplished by biliary sphincterotomy and balloon extraction. - One plastic biliary stent was placed into the common bile duct. Recommendation: - [facility]. - Proceed with cholecystectomy. - Repeat ERCP in 6 weeks to remove stent. - Return to referring physician. Robert Ferrara MD 07/07/2019 5:46:15 PM This report has been signed electronically. Note Initiated On: 07/07/2019 4:31 PM Number of Addenda: 0 I attest to the content of the Intraoperative Record and orders documented therein, exceptions below {[id number]}
--- NOTE | 2019-07-07 17:51 | Fluoroscopy Report ---
INTRAOPERATIVE RADIOGRAPHS CLINICAL HISTORY: ERCP. Fluoroscopy time: 1 minute 49 seconds. FINDINGS: 13 spot fluoroscopic views of the right upper quadrant from an ERCP procedure are correlate d with MRCP dated 07/06/2019. The initial images show the gastroscope projecting over the stomach. Ther e is cannulation the common bile duct. Apparent filling defects are seen in the common duct and may r epresent gas bubbles versus choledocholithiasis. There is no significant intra or extrahepatic biliar y ductal dilatation. Contrast is noted in the gallbladder and shows cholelithiasis. A balloon sweep o f the common duct is performed. No subsequent filling defects identified within the common duct. The final image shows a common bile duct stent in place. IMPRESSION: Intraoperative ERCP images as above. Correlate with the operative report. Electronically signed by: Arjun Perkins M.D. 07/07/2019 5:49 PM
[2019-07-07] MEDS ORDERED: NEOSTIGMINE METHYLSULFATE 5 MG/5 ML SYR ONE (18:03)
[2019-07-07] MEDS ORDERED: GLYCOPYRROLATE 0.2 MG/ML VIAL ONE (18:03)
--- NOTE | 2019-07-07 18:24 | Post Operative Brief Note ---
Immediate Post Op Note v1 Date of Surgery July 07, 2019 Pre & Post Diagnosis Operation Date: 07/07/19 09:50 <No data on this case meets the specified criteria> Operation Date: 07/07/19 14:20 Pre-Op Diagnosis: Elevated LFT's; Acute cholecystitis, Cholelithiasis Post-Op Diagnosis: Common Bile Duct Stone; Acute cholecystitis, Cholelithiasis I identified the patient and participated in the time-out.: Yes Procedure Operation Date: 07/07/19 09:50 <No data on this case meets the specified criteria> Operation Date: 07/07/19 14:20 Actual Procedures p Endoscopic Retrograde Cholangiopancreatogram, Endoscopic Ultrasonography Upper(Not Applicable) - Robert Ferrara MD s Laparoscopic Cholecystectomy(Not Applicable) - Edson Morgan MD Surgeon Edson Morgan MD Filter Tender 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
[2019-07-07] MEDS ORDERED: Nursing to Pharmacy Communication ONE (19:51)
--- NOTE | 2019-07-07 19:57 | Anesthesiology Progress Note ---
Date of Service July 07, 2019 Anesthesia Post Procedure Vital Signs Vital Signs: Temp Pulse Pulse Resp BP Pulse Ox 07/07/19 19:29 36.8 C 61 16 149/93 H 94 07/07/19 19:10 36.9 C 64 16 142/98 H 97 07/07/19 19:00 63 16 147/99 H 94 07/07/19 18:50 67 16 134/90 94 07/07/19 18:44 37.1 C 62 11 L 128/79 97 07/07/19 15:35 36.9 C 81 18 143/94 H 95 07/07/19 12:00 36.6 C 76 16 144/79 H 96 07/07/19 10:05 141/92 H 07/07/19 07:50 36.7 C 80 18 145/99 H 94 07/07/19 07:29 36.6 C 69 19 137/85 95 07/06/19 22:57 36.8 C 76 16 122/75 94 Pain Intensity Right Flank: Pain Intensity: 3 Transfer of Care Handoff Completed per policy Notes Mental Status: alert / awake / arousable Patient Amnestic to Procedure: Yes Nausea / Vomiting: adequately controlled Pain: adequately controlled Airway Patency, RR, SpO2: stable & adequate BP & HR: stable & adequate Hydration State: stable & adequate Anesthetic Complications: no major complications apparent and Pt Satisfied with anesthetic care Notes: The patient is doing well. He will have continuous pulse oximetry overnight.
[2019-07-08] MEDS: MoRPHine SULFATE 10 MG/ML CARP/VIAL IV PRN (00:40)
[2019-07-08] MEDS: SODIUM CHLORIDE 0.9% 1000ML 1,000 ML IV SCH (03:07)
--- NOTE | 2019-07-08 03:44 | Operative Report ---
DATE OF OPERATION: 07/07/2019 PREOPERATIVE DIAGNOSES: Acute cholecystitis, cholelithiasis post stat ERCP. POSTOPERATIVE DIAGNOSES: Acute cholecystitis, cholelithiasis post stat ERCP. OPERATION: Laparoscopic cholecystectomy. SURGEON: Edson Morgan MD ANESTHESIA: General. ESTIMATED BLOOD LOSS: About 10 mL. FINDINGS: Acute cholecystitis, cholelithiasis. COMPLICATIONS: None. INDICATIONS FOR THE PROCEDURE: This is a 44-year-old gentleman who presented to the ED with abdominal pain and patient had ultrasound, CT scan diagnosis of acute cholecystitis, cholelithiasis, common bile duct stone. The patient was admitted to the hospital and today the GI doctor did the ERCP and before the ERCP, I recommended to do the laparoscopic cholecystectomy, possible open, possible cholangiogram to follow after the ERCP. I did talk to the patient about the benefits, the risks, and alternate procedures. I indicated the risks may include but not limited such as bleeding, infection, injury to common bile duct, bile leak, incisional hernia. The patient understands. He signed informed consent and I answered all questions. DETAILS OF PROCEDURE: The patient already had ERCP done in the OR. The patient was still on the OR table and I came in and we put the patient on the supine position. The patient's abdomen was prepped and draped in routine sterile fashion and after time out, I injected local anesthesia by using 1% lidocaine mixed with 0.5% Marcaine just above the umbilicus. Then I made a small incision just above the umbilicus, opened fascia, and opened peritoneum under direct vision. Put a Glenis trocar in, connected to CO2 to create pneumoperitoneum. Flow rate at 6 liter per minute. Pressure not more than 14 mmHg. Once we got a nice pneumoperitoneum, we put a camera in, looked around the abdomen. Normal finding on the liver. However, the gallbladder showed significant gallbladder wall thickening, edema, confirmed diagnosis of acute cholecystitis. Once we confirmed the diagnosis of acute cholecystitis, I put another two 5-mm trocars on the right upper quadrant, one 11 trocar on the epigastric area. Once all trocars in, we put a grasper to hold the base of gallbladder, put direction to the diaphragm, another grasper to hold the pouch of gallbladder, put the latter to expunge triangle of Calot. The cystic duct was identified and mobilized. I put two 10 mm metal clips on the proximal cystic duct, one on the distal cystic duct and used scissor for transection of the cystic duct. Rechecked, no bile leak, no active bleeding. The cystic artery was identified and mobilized. I put two 10 mm metal clips on the proximal cystic artery, one on the distal cystic artery. I used the scissors for transection of cystic artery. Rechecked, no active bleeding. Then we used the Bovie to take down gallbladder from the liver bed. Rechecked and no bile leak and no active bleeding from the liver bed. Then we removed gallbladder through the catch bag. Then we reinserted Glenis trocar in, connected to CO2 to create pneumoperitoneum, again looked around the abdomen, no active bleeding, no bile leak from the liver bed. Then we removed all trocar under direct vision. No active bleeding from the trocar sites. Pneumoperitoneum was released. I closed the umbilical incision, fascial layer by using #1 Vicryl [id number] x2, closed subcutaneous layer by using 2-0 Vicryl interruptedly and closed skin by using 4-0 Vicryl continuous running, closed another two 5 mm trocar sites skin only by using 4-0 Vicryl, closed the epigastric area, the fascial layer by using #1 Vicryl [id number] x2, subcutaneous layer by using 2-0 Vicryl interruptedly, closed skin by using 4-0 Vicryl interruptedly. Then we put the dressing on. The patient tolerated the procedure well. All instrument, needle, and sponge counts were correct x2 at the end of case. The patient transferred to recovery room in stable condition. The specimen sent to pathology. After procedure, I did talk to the patient's mom about the OR finding and procedure we did, she understands. I attest to the content of the Intraoperative Record and any orders documented therein. Any exception s are noted below.
[2019-07-08 08:07] LABS: Basophils # (auto) 0.01 K/uL (0-0.2); Basophils % (auto) 0.2 %; Eosinophils # (auto) 0.08 K/uL (0-0.5); Eosinophils % (auto) 1.3 %; Hematocrit (blood only) 39.4 % (42-52); Hemoglobin 14.4 g/dL (14.0-18.0); Immature Granulocytes # (auto) 0.01 K/uL (0.00-0.02); Immature Granulocytes % (auto) 0.2 %; Lymphocytes # (auto) 1.24 K/uL (1.2-3.4); Lymphocytes % (auto) 20.3 %; Mean Corpuscular Hemoglobin 31.2 pg (25-34); Mean Corpuscular Hgb Conc 36.5 g/dL (32-36); Mean Corpuscular Volume 85.5 fL (80-100); Monocytes # (auto) 0.85 K/uL (0.11-0.59); Monocytes % (auto) 13.9 %; Neutrophils # (auto) 3.91 K/uL (1.4-6.5); Neutrophils % (auto) 64.1 %; Platelet Count 193 K/uL (130-400); RDW Coefficient of Variation 14.3 % (11.5-14.5); RDW Standard Deviation 43.8 fL (36.4-46.3); Red Blood Count 4.61 M/uL (4.7-6.1)
[2019-07-08 08:47] LABS: Albumin Level 3.2 gm/dl (3.4-5.0); Bilirubin Direct 0.2 mg/dl (0-0.2); Bilirubin,Total 0.9 mg/dl (0.2-1); Total Protein 6.7 gm/dl (6.4-8.2)
[2019-07-08] MEDS ORDERED: allopurinoL 300 MG TAB PO SCH (09:00)
[2019-07-08] MEDS: AMLODIPINE BESYLATE 5 MG TAB PO SCH (09:14)
[2019-07-08] MEDS: PANTOprazole 40 MG TAB PO SCH (09:15)
--- NOTE | 2019-07-08 09:46 | Surgery Progress Note ---
Date of Service July 08, 2019 Assessment & Plan (1) Biliary colic: pod 1 doing well ok for d/c f/u with GI for stent removal instructions given Subjective pt seen. feeling fine. no complaints. Physical Exam Physical Exam: alert. nad abd: soft. expected tenderness. Results & Data Vital Signs (Past 12 Hours) Vital Signs Temp Pulse Resp BP Pulse Ox 07/08/19 07:34 36.8 C 86 19 130/81 90 07/08/19 04:11 36.9 C 88 16 138/91 91 07/07/19 22:26 37 C 82 16 137/86 91 PG Care Time/CCT Total # of Minutes Spent Total Time Spent with Patient: Total time spent is greater than 50% in coordination of care (as documented) at patient's floor/unit and/or counseling patient: Coding Level of Care Code None Diagnoses Biliary colic K80.50
--- NOTE | 2019-07-10 10:09 | Discharge Summary ---
Date of Service July 10, 2019 Admission HPI Per Admitting Provider Amish is a 44-year-old male history of gout, hypertension, GERD who presented to the emergency room today with complaint of right upper quadrant abdominal pain that began around 6 PM after dinner last night. Associated nausea and bloating. Describes pain is sharp and severe originally and then improved throughout the evening. States he had pizza for dinner and pain was immediately following eating with associated nausea and bloating. Throughout the night he seemed to do okay and then had pop tarts for breakfast which again caused severe pain which persisted until presenting to the ED. Amish states he had similar pain in August of last year in which he had shoulder and abdominal pain. CT scan of the abdomen and pelvis showed no acute findings. He has a history of kidney stones however states this pain is different. Denies of any fevers, chills, chest pain, shortness of breath, diarrhea, constipation, blood in the stools, acholic stools, black tarry stools or difficulty urinating. ER work-up included labs which showed no leukocytosis. Total bilirubin elevated at 2.1 LFTs elevated with AST 423, ALT 396. Alk phos and lipase within normal limits. Ultrasound of the abdomen showed small gallstones however no gallbladder wall thickening or pericholecystic fluid. Common bile duct measuring 5 mm. Ultrasound does show fatty liver. Amish states his pain is improved however he has received pain medication. Never had any issues with his liver in the past. Was told he had gallstones when he had procedure for his kidney stones. Principal Diagnosis Gallstones Elevated t. bili and LFTS concern for choledocholithiasis Discharge Data Allergies Allergy/AdvReac Type Severity Reaction Status Date / Time aspirin Allergy Unknown Unknown Verified 07/07/19 15:38 codeine AdvReac Intermediate MENTAL Verified 07/07/19 15:38 CHANGES/WILD Consultations 07/06/19 15:16 ED Decision to Admit Stat 07/06/19 15:17 Consult Gastroenterology Routine Procedures Performed Operation Date: 07/07/19 09:50 <No data on this case meets the specified criteria> Operation Date: 07/07/19 14:20 Actual Procedures p Endoscopic Retrograde Cholangiopancreatogram(Not Applicable) - Robert Ferrara MD s Laparoscopic Cholecystectomy(Not Applicable) - Edson Morgan MD s Endoscopic Ultrasonography Upper(Not Applicable) - Robert Ferrara MD Ordered Studies 07/06/19 12:27 US gallbladder Stat 07/06/19 15:17 MR MRCP Stat 07/07/19 15:10 US upper EUS PACS images Routine 07/07/19 16:00 FL ERCP biliary ductal Routine Hospital Course (1) Abdominal pain, RUQ: Patient was admitted to medical/surgical floor from emergency department and underwent MRCP to further evaluate elevated t. bili and LFTS. MRCP showed no evidence of dilated CBD or choledocholithaisis. GI was consulted as well for further evaluation given elevated t. bili. Patient kept NPO, IV fluids, IV pain management as needed, IV zofran prn nausea. Repeat am labs showed t. bili still at 2.0 and elevation of LFTs. GI recommended EUS/ERCP prior to cholecystectomy. Patient underwent ERCP and laparoscopic cholecystectomy by DR. Ferrara and Dr. Morgan respectively on HD # 1. Patient was found to have choledocholithiasis and a biliary stent ws placed. Patient tolerated procedures wells. POD # 1 vital stable, afebrile. Pain controlled. Diet tolerated. Patient was discharged home on POD # 1 in stable condition. To follow-up with GI as an outpatient for biliary stent removal. Total Time Total Time Spent Total Time Spent (In Minutes): 20 Total Time Includes: Examination of the Patient, Discharge Planning and Medication Reconciliation Discharge Plan Discharge Items Patient Disposition: Home - Self-Care Reason For Visit: RUQ ABDOMINAL PAIN Discharge Diagnosis: RUQ Abdominal Pain Activity: As commented below Lifting: No more than 10 pounds Bathing Comment: May shower in 24 hrs. Exercise/Sports: Wait until after follow-up appointment Driving/Machine Use: No driving while taking narcotic pain medication. Non-emergency contact: Surgeon Call non-emergency contact if: you have any medication questions, your pain is not controlled, your temperature is above 101.5, your wound has increased redness and your wound has increased drainage Follow-up/Referrals: Edson Morgan MD [Physician] - 07/26/19 12:00 pm () Robert Ferrara MD [Hospitalist] - (We will call to schedule an appointment for stent removal on Wednesday and will call you with the date and time. ) Esa Juarez DO [Primary Care Provider] - 07/11/19 11:05 am Diet: Regular Addtl Attending Provider Instructions: Post-Surgical ~Discharge Instructions Activity Recommendations: - lifting limitation: (10 pounds for 2 weeks), - exercise/sex/sports limit: (nonstrenuous for 2 weeks), - driving or machine use limit: (none for 1 week), - Shower/bathe limit: (may shower beginning tomorrow) Diet: - Resume previous diet SPECIAL CARE INSTRUCTIONS: - May shower in 24 hours. Let water run over area and pat dry. - Leave steri strips on for one week. - Call the surgeon's office with any questions or concerns - - (ex. temperature higher than 101 degrees F, excessive bleeding or pain). MEDICATIONS: - Resume previous medications unless instructed otherwise by your surgeon. - Ibuprofen 600 mg every 6 hours with food - Percocet 1 every 4 hours, as needed for pain FOLLOW UP VISIT: - If not already scheduled, please call the office to schedule a two week follow-up appointment. Office number Pending Studies at Discharge: Yes Studies:: Pathology report. Stand-Alone Forms: Call Back Authorization, [facility], Opioid Pain Management, Smoking Cessation Medications and DC Order Prescriptions: New oxycodone-acetaminophen [Percocet] 5-325 mg tablet 1 tab PO Q4H PRN (Reason: pain) 3 Days Qty: 18 RF: 0 Continued amlodipine 10 mg tablet 5 mg PO DAILY RF: 0 pantoprazole 40 mg tablet,delayed release (DR/EC) 40 mg PO DAILY RF: 0 allopurinol 300 mg tablet 450 mg PO DAILY RF: 0 Discharge Orders: Discharge Order (Routine); Ordered 07/08/19 Ordered By: Nat Zamudio/Other Patient Handouts: DVT Prevent Admission Data Admit Date/Time: 07/06/19 15:17 Attending Provider: Edson Morgan Admit Provider: Edson Morgan Primary Care Provider: Esa Juarez Other Providers: Edson Morgan ; Liss Schwarz ; Vivi Amaya ; Sarath Cabral ; Ciera Lebron ; Johnny Jurado ; Jose Hancock ; Frank Candelaria ; Shaniqua Perla ; Chase Mead ; Johnathon Gross ; Jyoti Ovalles ; Connie Tellez ; Octavia Fall ; Monet Singh ; Robert Ferrara Other Interventions: Discharge Summary Assessment (RN) Last Done: 07/08/19 10:12 DC Date/Time DO NOT enter until pt leaves facility: 07/07/19 12:05
--- NOTE | 2019-07-10 11:13 | Discharge Summary ---
ADMITTING DIAGNOSES: Acute cholecystitis with common bile duct stone. DISCHARGE DIAGNOSES: Acute cholecystitis with common bile duct stone. OPERATION: ERCP, laparoscopic cholecystectomy. The ERCP was done by the GI doctor and the laparoscopy was done by me, Dr. Morgan. DETAILS OF DISCHARGE SUMMARY: This is a 44-year-old gentleman who was admitted to the hospital for acute cholecystitis with common bile duct stone and the patient was admitted to the hospital overnight and next day, the patient had ERCP done by the GI doctor. Followed by the ERCP, I did a laparoscopic cholecystectomy. The patient tolerated the procedure well. After the procedure, the patient was transferred to recovery room in stable condition and later on transferred to regular floor. The patient is doing fine and he tolerated a clear diet and no nausea, no vomiting. PHYSICAL EXAMINATION: VITAL SIGNS: Temperature is 36.8, respiratory rate 19, heart rate 86, O2 saturation 98% on room air. The patient's blood pressure is 130/81. GENERAL: The patient is alert, awake, oriented x3. HEENT: Within normal limitation. NEUROLOGIC: Intact. NECK: No JVD. CHEST: Bilateral lung sounds clear. HEART: Normal S1, S2. No murmurs. ABDOMEN: Soft, nondistended. All dressing intact. Mild incision pain. EXTREMITIES: No edema. PLAN: The patient wanted to go home. The patient received the postop care instruction. The patient was discharged home on .
== END 2019-07-08 12:05 | disposition home or self-care (01) ==
LOC: 3W 11:52 → ED 11:52 → 3W 16:39

== ENCOUNTER 2022-07-05 22:24 | Observation (INO) ==
[2022-07-05 22:56] LABS: Basophils # (auto) 0.06 K/uL (0-0.2); Basophils % (auto) 0.4 %; Eosinophils # (auto) 0.08 K/uL (0-0.50); Eosinophils % (auto) 0.6 %; Hematocrit (blood only) 42.9 % (42.0-52.0); Hemoglobin 15.5 g/dl (14.0-18.0); Immature Granulocytes # (auto) 0.04 K/uL (0.01-0.20); Immature Granulocytes % (auto) 0.3 %; Lymphocytes # (auto) 2.45 K/uL (1.2-3.4); Lymphocytes % (auto) 17.6 %; Mean Corpuscular Hemoglobin 31.1 pg (25.0-34.0); Mean Corpuscular Hgb Conc 36.1 g/dL (32.0-36.0); Mean Corpuscular Volume 86.1 fL (80.0-100.0); Mean Platelet Volume 9.5 fL (9.4-12.4); Monocytes # (auto) 1.86 K/uL (0.11-0.59); Monocytes % (auto) 13.4 %; Neutrophils # (auto) 9.44 K/uL (1.40-6.50); Neutrophils % (auto) 67.7 %; Platelet Count 287 K/uL (130-400); RDW Coefficient of Variation 13.4 % (11.5-14.5); RDW Standard Deviation 41.5 fL (36.4-46.3); Red Blood Count 4.98 M/uL (4.70-6.10); White Blood Count 13.93 K/ul (4.8-10.8)
[2022-07-05] MEDS ORDERED: MoRPHine SULFATE 4 MG/ML 1 ML CARP\\VIAL IV STA (23:22)
[2022-07-05] MEDS ORDERED: ONDANSETRON INJ 2 MG/ML 2 ML VIAL IV STA (23:22)
--- NOTE | 2022-07-05 23:22 | Emergency Department Note ---
History of Present Illness General Chief complaint: Leg Injury/Pain Stated complaint: ANKLE AND KNEE SWOLLEN Time Seen by Provider: 07/05/22 23:12 History of Present Illness Maximum Pain Intensity: 10 This is a 47-year-old male with a history of gout that presents to the emergency department via private vehicle with complaints of "ankle and knee swollen". The patient notes that he was seen here 2 days ago for evaluation of spasm/cramp to the right lower extremity. He notes ongoing symptoms since that time and now significant pain in the right ankle. Patient notes that he has felt similar with previous gout flares. He notes pain radiating from the ankle to the knee on the right side. He denies any known trauma or injury. He does note remote history of DVT to the right leg during medically induced coma, but nothing recent. Patient denies any chest pain or shortness of breath. No numbness or tingling. Patient does note he has had some reflux throughout the day as well and did not take his pantoprazole. Patient also notes that normally he is on allopurinol but was recently out of this medication and has not been able to refill this medication. Patient does note that he feels warm on arrival. Home Medications Medication Instructions Recorded Confirmed Type allopurinol 300 mg tablet 600 mg PO DAILY 09/05/18 07/06/22 History amlodipine 10 mg tablet 10 mg PO QAM 09/05/18 07/06/22 History pantoprazole 40 mg tablet,delayed 40 mg PO DAILY 09/05/18 07/06/22 History release Allergies Allergy/AdvReac Type Severity Reaction Status Date / Time aspirin Allergy Unknown Unknown Verified 07/06/22 08:58 codeine AdvReac Intermediate MENTAL Verified 07/06/22 08:58 CHANGES/WILD Past Med/Surg History Medical History (Updated 07/06/22 @ 14:29 by Redd Correia PA-C) DVT (deep venous thrombosis) HX-WAS ON THINNERS AND OFF-NO RECENT ISSUES PER PT GERD (gastroesophageal reflux disease) Gout HTN (hypertension) Kidney stones Obesity Sleep apnea CPAP SVT (supraventricular tachycardia) Surgical History History of cystoscopy FOR KIDNEY STONES History of inguinal hernia repair History of tooth extraction WISDOM TEETH Malignant melanoma of skin BACK/HEAD S/P appy Family History Mother Family history of diabetes mellitus Other No pertinent family history in first degree relatives Social History Smoking Status: Never smoker Tobacco Type: Cigarettes Second Hand Exposure: Yes (PARENTS); Hx Alcohol Use: No Hx Substance Use: No Preferred Language: Welsh Communication Ability: Effective Mental Health Nurse Required: No Beliefs That Will Affect Care: None Current Living Situation: Spouse and Family Current Living Situation Comment: lives at home with and three children Other Information That Helps Us Care for You: No Feels Safe at Home: Yes Safety Concerns: Feels Safe At This Time Assistive Devices: CPAP and Glasses Review of Systems A total of 10 systems reviewed and were otherwise negative Physical Exam Vital Signs Vital Signs - 24 hr 07/05/22 22:28 07/05/22 23:54 07/06/22 00:40 Temperature 37.7 C H Temperature Source Temporal Artery Scan Pulse Rate 110 H Pulse Rate [Finger] 101 H 98 H Pulse Rhythm [Finger] Pulse Strength [Finger] Respiratory Rate 18 20 18 Respiratory Effort / Characteristics Non-Labored Spontaneous Non-Labored Spontaneous Respiratory Depth Normal Normal Respiratory Pattern Blood Pressure 203/114 H Blood Pressure [Right Arm] 151/90 H Blood Pressure Mean 143 Blood Pressure Mean [Right Arm] 110 Blood Pressure Position Sitting Pulse Oximetry 97 96 94 Oxygen Delivery Method Room Air Room Air Room Air Sepsis Recent Fever Within 48 Hours No Sepsis New/Unexplained Change in Mental Status No Sepsis Action Taken by Nursing No Action Required 07/06/22 02:00 07/06/22 04:00 Temperature Temperature Source Pulse Rate Pulse Rate [Finger] 95 H 78 Pulse Rhythm [Finger] Regular Pulse Strength [Finger] Normal Respiratory Rate 20 17 Respiratory Effort / Characteristics Non-Labored Respiratory Depth Normal Respiratory Pattern Regular Blood Pressure Blood Pressure [Right Arm] 160/97 H 122/74 Blood Pressure Mean Blood Pressure Mean [Right Arm] 118 90 Blood Pressure Position Pulse Oximetry 95 97 Oxygen Delivery Method Room Air Room Air Sepsis Recent Fever Within 48 Hours Sepsis New/Unexplained Change in Mental Status Sepsis Action Taken by Nursing VITAL SIGNS - Vital signs and nursing notes were reviewed. Tachycardic, hypertensive, borderline febrile. GENERAL -47-year-old male appearing his stated age who is in no acute distress. Communicates well with provider and answers questions appropriately. SKIN -there is edema, increased warmth and erythema overlying the right ankle wendie int erythema is mainly involving the medial and lateral aspects of the right ankle. There is edema extending into the dorsum of the right foot. HEAD - NC/AT. EYES - Sclera anicteric. MOUTH/OROPHARYNX - Without perioral cyanosis. NECK - Neck with FROM. No nuchal rigidity. LUNGS - Chest wall symmetric without accessory muscle use, intercostals retractions, or central cyanosis. Normal vesicular breath sounds CTA B/L. No wheezes, rales, or rhonchi appreciated. CARDIAC - RRR with S1/S2. No murmur, rubs, or gallops appreciated. EXTREMITIES - No clubbing or peripheral cyanosis. Right ankle and foot edema present. Erythema to the right medial and lateral ankle joint. No break in the integument. Exquisite tenderness overlying the right ankle joint. Increased warmth to the right ankle joint. Right dorsalis pedis pulse within normal limits to the right ankle. Cap refill of all toes within normal limits. R knee generalized TTP noted with decreased active and passive ROM secondary to pain. +5/5 strength noted in UE/LE bilaterally. NEUROLOGIC - Cranial nerves II through XII grossly intact. PSYCH - A&O, and cooperates fully with examiner. Pt is very pleasant and interacts well with examiner. Course Administered Medications Amlodipine Besylate (Amlodipine Besylate 5 Mg Tab) 10 mg PO QAM FORMERLY [facility], [facility]–1983 Stop: 08/05/22 08:59 Last Admin: 07/06/22 09:14 Dose: 10 mg Documented By: JAYLEN Enoxaparin Sodium (Enoxaparin Inj 40 Mg/0.4 Ml Syr) 40 mg SQ Q12H FOR[facility], [facility]–1983 Stop: 08/05/22 08:59 Last Admin: 07/06/22 09:15 Dose: 40 mg Documented By: JAYLEN Sodium Chloride (Nss 1000ml) 1,000 mls @ 80 mls/hr IV .[id number] FOR[facility], [facility]–1983 Stop: 07/06/22 18:44 Last Admin: 07/06/22 06:42 Dose: 80 mls/hr Documented By: GCB Discontinued Medications Al Hydrox/Mg Hydrox/Simethicone (Gi Cocktail Ed Use) 1 dose PO ONE ONE Stop: 07/06/22 00:10 Last Admin: 07/06/22 00:39 Dose: 1 dose Documented By: AVA Famotidine (Pepcid 20mg Iv Push) 20 mg in 5 mls @ 2.5 mls/min IV NOW STA Stop: 07/06/22 00:10 Last Admin: 07/06/22 00:39 Dose: 2.5 mls/min Documented By: AVA Ceftriaxone Sodium (Rocephin) 2,000 mg in 70 mls @ 140 mls/hr IV NOW STA Stop: 07/06/22 03:09 Last Infusion: 07/06/22 03:28 Dose: 0 mls/hr Documented By: Admin: 07/06/22 02:50 Dose: 140 mls/hr Documented By: NELL Famotidine 20 mg/ Syringe 5 mls @ 2.5 mls/min IV BID RUTH Stop: 08/05/22 08:59 Last Admin: 07/06/22 09:15 Dose: 2.5 mls/min Documented By: JAYLEN Ioversol (Optiray 350 100ml) 100 ml IV ONCE ONE Stop: 07/06/22 02:04 Last Admin: 07/06/22 02:04 Dose: 89 ml Documented By: CHET Ketorolac Tromethamine (Ketorolac Tromethamine 15 Mg/Ml Vial) 15 mg IV NOW ONE Stop: 07/06/22 06:16 Last Admin: 07/06/22 06:44 Dose: 15 mg Documented By: MARIA ELENA Methylprednisolone (Methylprednisolone 125 Mg/2 Ml Vial) 60 mg IV NOW STA Stop: 07/06/22 02:41 Last Admin: 07/06/22 02:50 Dose: 60 mg Documented By: NELL Morphine Sulfate (Morphine Sulfate 4 Mg/Ml 1 Ml Carp\\Vial) 4 mg IV NOW STA Stop: 07/05/22 23:23 Last Admin: 07/05/22 23:52 Dose: 4 mg Documented By: AVA Morphine Sulfate (Morphine Sulfate 4 Mg/Ml 1 Ml Carp\\Vial) 4 mg IV NOW STA Stop: 07/06/22 01:30 Last Admin: 07/06/22 02:01 Dose: 4 mg Documented By: AVA Ondansetron HCl (Ondansetron Inj 2 Mg/Ml 2 Ml Vial) 4 mg IV NOW STA Stop: 07/05/22 23:23 Last Admin: 07/05/22 23:51 Dose: 4 mg Documented By: AVA Potassium Chloride (Potassium Chloride Crtab 20 Meq Tabcr) 40 meq PO NOW STA Stop: 07/06/22 09:00 Last Admin: 07/06/22 09:14 Dose: 40 meq Documented By: JAYLEN Medical Decision Making Laboratory Data 07/05/22 22:35 07/05/22 22:35 Lab Results 07/05/22 07/05/22 07/05/22 Range/Units 22:35 22:35 22:35 WBC 13.93 H (4.8-10.8) K/ul RBC 4.98 (4.70-6.10) M/uL Hgb 15.5 (14.0-18.0) g/dl Hct 42.9 (42.0-52.0) % MCV 86.1 (80.0-100.0) fL MCH 31.1 (25.0-34.0) pg MCHC 36.1 H (32.0-36.0) g/dL RDW Std Deviation 41.5 (36.4-46.3) fL RDW Coeff of Ciera 13.4 (11.5-14.5) % Plt Count 287 (130-400) K/uL MPV 9.5 (9.4-12.4) fL Immature Gran % (Auto) 0.3 % Neut % (Auto) 67.7 % Lymph % (Auto) 17.6 % [place] % (Auto) 13.4 % Eos % (Auto) 0.6 % Baso % (Auto) 0.4 % Neut # (Auto) 9.44 H (1.40-6.50) K/uL Lymph # (Auto) 2.45 (1.2-3.4) K/uL [place] # (Auto) 1.86 H (0.11-0.59) K/uL Eos # (Auto) 0.08 (0-0.50) K/uL Baso # (Auto) 0.06 (0-0.2) K/uL Immature Gran # (Auto) 0.04 (0.01-0.20) K/uL ESR 56 H (0-15) mm/hr Sodium 137 (136-145) mmol/L Potassium 3.4 L (3.5-5.1) mmol/L Chloride 102 (98-107) mmol/L Carbon Dioxide 26 (21-32) mmol/L Anion Gap 9 (3-11) BUN 22 (6-23) mg/dl Creatinine 1.28 (0.6-1.4) mg/dl Est Cr Clr Drug Dosing Not Reportable Est GFR ( Amer) 77.3 ml/min Est GFR (Non-Af Amer) 66.7 ml/min BUN/Creatinine Ratio 17.2 (10-20) Glucose 115 H (70-99(Fasting)) mg/dl Lactate (0.4-2.0) mmol/L Uric Acid 9.5 H (2.6-7.2) mg/dl Calcium 9.8 (8.5-10.1) mg/dl Total Bilirubin 0.8 (0.2-1.0) mg/dl AST 13 (13-39) U/L ALT 20 (7-52) U/L Alkaline Phosphatase 57 (34-104) U/L Troponin I High Sens (0-20) pg/ml C-Reactive Protein 9.39 H (0-0.5) mg/dl Total Protein 7.8 (6.0-8.3) gm/dl Albumin 4.1 (3.4-5.0) gm/dl Globulin 3.7 (2.5-4.0) gm/dl Albumin/Globulin Ratio 1.1 (0.9-2) Procalcitonin (0-0.5) ng/ml SARS-CoV-2, RNA, NAAT (NEGATIVE) 07/05/22 07/05/22 07/05/22 Range/Units 22:35 23:50 23:52 WBC (4.8-10.8) K/ul RBC (4.70-6.10) M/uL Hgb (14.0-18.0) g/dl Hct (42.0-52.0) % MCV (80.0-100.0) fL MCH (25.0-34.0) pg MCHC (32.0-36.0) g/dL RDW Std Deviation (36.4-46.3) fL RDW Coeff of Ceira (11.5-14.5) % Plt Count (130-400) K/uL MPV (9.4-12.4) fL Immature Gran % (Auto) % Neut % (Auto) % Lymph % (Auto) % [place] % (Auto) % Eos % (Auto) % Baso % (Auto) % Neut # (Auto) (1.40-6.50) K/uL Lymph # (Auto) (1.2-3.4) K/uL [place] # (Auto) (0.11-0.59) K/uL Eos # (Auto) (0-0.50) K/uL Baso # (Auto) (0-0.2) K/uL Immature Gran # (Auto) (0.01-0.20) K/uL ESR (0-15) mm/hr Sodium (136-145) mmol/L Potassium (3.5-5.1) mmol/L Chloride (98-107) mmol/L Carbon Dioxide (21-32) mmol/L Anion Gap (3-11) BUN (6-23) mg/dl Creatinine (0.6-1.4) mg/dl Est Cr Clr Drug Dosing Est GFR ( Amer) ml/min Est GFR (Non-Af Amer) ml/min BUN/Creatinine Ratio (10-20) Glucose (70-99(Fasting)) mg/dl Lactate 0.9 (0.4-2.0) mmol/L Uric Acid (2.6-7.2) mg/dl Calcium (8.5-10.1) mg/dl Total Bilirubin (0.2-1.0) mg/dl AST (13-39) U/L ALT (7-52) U/L Alkaline Phosphatase (34-104) U/L Troponin I High Sens 6.4 (0-20) pg/ml C-Reactive Protein (0-0.5) mg/dl Total Protein (6.0-8.3) gm/dl Albumin (3.4-5.0) gm/dl Globulin (2.5-4.0) gm/dl Albumin/Globulin Ratio (0.9-2) Procalcitonin 0.08 (0-0.5) ng/ml SARS-CoV-2, RNA, NAAT (NEGATIVE) 07/06/22 Range/Units 02:53 WBC (4.8-10.8) K/ul RBC (4.70-6.10) M/uL Hgb (14.0-18.0) g/dl Hct (42.0-52.0) % MCV (80.0-100.0) fL MCH (25.0-34.0) pg MCHC (32.0-36.0) g/dL RDW Std Deviation (36.4-46.3) fL RDW Coeff of Ciera (11.5-14.5) % Plt Count (130-400) K/uL MPV (9.4-12.4) fL Immature Gran % (Auto) % Neut % (Auto) % Lymph % (Auto) % [place] % (Auto) % Eos % (Auto) % Baso % (Auto) % Neut # (Auto) (1.40-6.50) K/uL Lymph # (Auto) (1.2-3.4) K/uL [place] # (Auto) (0.11-0.59) K/uL Eos # (Auto) (0-0.50) K/uL Baso # (Auto) (0-0.2) K/uL Immature Gran # (Auto) (0.01-0.20) K/uL ESR (0-15) mm/hr Sodium (136-145) mmol/L Potassium (3.5-5.1) mmol/L Chloride (98-107) mmol/L Carbon Dioxide (21-32) mmol/L Anion Gap (3-11) BUN (6-23) mg/dl Creatinine (0.6-1.4) mg/dl Est Cr Clr Drug Dosing Est GFR ( Amer) ml/min Est GFR (Non-Af Amer) ml/min BUN/Creatinine Ratio (10-20) Glucose (70-99(Fasting)) mg/dl Lactate (0.4-2.0) mmol/L Uric Acid (2.6-7.2) mg/dl Calcium (8.5-10.1) mg/dl Total Bilirubin (0.2-1.0) mg/dl AST (13-39) U/L ALT (7-52) U/L Alkaline Phosphatase (34-104) U/L Troponin I High Sens (0-20) pg/ml C-Reactive Protein (0-0.5) mg/dl Total Protein (6.0-8.3) gm/dl Albumin (3.4-5.0) gm/dl Globulin (2.5-4.0) gm/dl Albumin/Globulin Ratio (0.9-2) Procalcitonin (0-0.5) ng/ml SARS-CoV-2, RNA, NAAT NEGATIVE (NEGATIVE) Imaging Data My Impression: Right ankle x-ray per my interpretation: Mild degenerative change noted. No fracture or dislocation. Radiologist's Impression: Ankle X-Ray 07/05/22 23:21 RIGHT ANKLE 3 VIEWS HISTORY: R ankle pain and edema COMPARISON: None. FINDINGS: There is no fracture or dislocation. Mild diffuse soft tissue swelling. There are mild to moderate degenerative changes within the ankle and hindfoot. No erosive changes identified. No soft tissue calcifications. Small posterior calcaneal spur is noted. No radiopaque foreign bodies. IMPRESSION: Degenerative changes within the right ankle. No acute fractures. ACT 112: Negative or not required by law. Electronically signed by: Roberto Hannon M.D. 07/06/2022 8:03 AM Venous Doppler Study 07/05/22 23:21 RIGHT LOWER EXTREMITY VENOUS DOPPLER HISTORY: R leg pain COMPARISON STUDY: None. FINDINGS: There is normal compressibility, flow, and augmentation within the right lower extremity deep venous system. IMPRESSION: No DVT within the right lower extremity ACT 112: Negative or not required by law. Electronically signed by: Roberto Hannon M.D. 07/06/2022 7:[address] 07/06/22 01:[address] with contrast CT DOSE: 177.23 mGy.cm HISTORY: R ankle erythema, edema, leukocytosis, hx gout TECHNIQUE: Multiaxial CT images of the right ankle were performed and reformatted in the sagittal and coronal plane following the intravenous admin istration of contrast. A dose lowering technique was utilized adhering to the principles of ALARA. COMPARISON: Right ankle radiograph 07/05/2022. FINDINGS: No acute fracture or dislocation within the right ankle. No erosive changes. Mild subcutaneous edema. There is mild to moderate osteoarthritis at the ankle joint. Irregularity at the medial malleolus likely represents old avulsion injuries. No erosive changes identified. No soft tissue masses or calcifications. There are mild to moderate degenerative changes within the midfoot. Small plantar and posterior calcaneal spurs are noted. IMPRESSION: 1. No acute fracture or dislocation within the right ankle. 2. No erosive changes. 3. No tophaceous deposits identified. ACT 112: Negative or not required by law. Electronically signed by: Roberto Hannon M.D. 07/06/2022 7:[address] RIGHT ANKLE: No evidence for fracture or dislocation No definite periarticular erosions are present which would indicate gout No evidence for tophaceous deposits Incidental note made of os cuboideum at the peroneus longus insertion as well as an os naviculare Radiologist: Surya Alvarado MD Study ready at 02:17 and initial results transmitted at 02:27 VENOUS RIGHT LOWER EXTREMITY: No evidence of deep venous thrombosis. Radiologist: Surya Alvarado MD Study ready at 00:46 and initial results transmitted at 01:03 [facility] Narrative Patient was seen and evaluated as above in room C03. Review was performed of nursing notes and vital signs. I did review pertinent previous visits and patient history. After obtaining a thorough history and physical examination the above work up was performed. Patient presents to us today for assessment of ongoing discomfort to the right knee and ankle. Patient cannot bear weight on the right ankle secondary to pain. Patient notes that he has a history of gout and this feels similar. He previously was on allopurinol but recently ran out of this medication and was not able to have it refilled. He also feels warm on arrival he notes. Options of care were discussed with the patient. IV access was established. Labs were drawn. There is an interval increase in the patient's white blood cell count now at 13.93 compared to normal just from a few days ago. No anemia. There is elevation of ESR and CRP. Mild hypokalemia 3.4. Uric acid 9.5 consistent with gout. Later in the patient's stay I was notified of the patient had some discomfort in the chest but notes this felt like his reflux and it has been going on throughout the day. He notes that it feels exactly like previous reflux episodes and did not take his pantoprazole. EKG was obtained at that time as well as troponin. EKG reveals sinus tachycardia rate of [address] elevation. QTc 448. QRS 102. Troponin normal. Do not suspect ACS. Patient while here was medicated with IV analgesia x2. He was also given Pepcid and a GI cocktail for his reflux symptoms. X-ray of the right ankle without fracture or dislocation. Mild degenerative change noted. Ultrasound of the right lower extremity negative for DVT. With the patient having interval elevation of white blood cell count, borderline febrile here at 37.7, exquisite tenderness to the right ankle joint with erythema I did elect to proceed with a CT scan of the right ankle with IV contrast after discussing the case with the attending physician. Although certainly this presentation could be from that of gout, other etiologies are felt to be reasonable to rule out. CT scan as above. Upon repeat evaluation patient was feeling better after the second round of IV analgesia. I discussed options in regard to inpatient versus outpatient management. The patient notes that he cannot bear weight on the right ankle. It is quite edematous and is exquisitely tender. He did require IV analgesia to manage his pain. At this time I find it reasonable to proceed with inpatient management for his gouty flare but will also cover for potential bacterial infection noting the patient's interval increase in his white blood cell count, borderline febrile state and erythema overlying the ankle joint in the event that there could be a secondary cellulitis. IV ceftriaxone ordered to cover for bacterial component and IV methylprednisolone ordered for treatment of the suspected gout. Patient amenable to plan of care. Case discussed with the hospitalist service. Please refer to further documentation regarding his stay. Case was discussed with the attending physician. GCS: 15 In the evaluation and treatment of this patient the following differential diagnoses were entertained: Septic arthritis, Lyme disease, fracture, dislocation, subluxation, contusion, gouty flare, cellulitis, among others Impression & Plan Acute right ankle pain, Acute gout, Edema of right ankle Discharge Plan Visit Data Chief Complaint: Leg Injury/Pain Stated Complaint: ANKLE AND KNEE SWOLLEN ED Provider: Dinora Jo ED Midlevel Provider: Redd Correia Discharge Problem: Acute right ankle pain, Acute gout, Edema of right ankle Patient Disposition: Admitted As Inpatient Condition: Good Discharge Instructions Interventions: ED Discharge Assessment Last Done: 07/06/22 05:46
[2022-07-05 23:23] LABS: Alanine Aminotransferase 20 U/L (7-52); Albumin Globulin Ratio 1.1 (0.9-2); Albumin Level 4.1 gm/dl (3.4-5.0); Alkaline Phosphatase 57 U/L (34-104); Anion Gap 9 (3-11); Aspartate Aminotransferase 13 U/L (13-39); BUN Creatinine Ratio 17.2 (10-20); Bilirubin,Total 0.8 mg/dl (0.2-1.0); Blood Urea Nitrogen 22 mg/dl (6-23); Calcium 9.8 mg/dl (8.5-10.1); Carbon Dioxide 26 mmol/L (21-32); Chloride 102 mmol/L (98-107); Est GFR (African American) 77.3 ml/min; Est GFR (Non-African American) 66.7 ml/min; Globulin 3.7 gm/dl (2.5-4.0); Glucose 115 mg/dl (70-99(Fasting)); Potassium 3.4 mmol/L (3.5-5.1); Sodium 137 mmol/L (136-145); Total Protein 7.8 gm/dl (6.0-8.3)
[2022-07-06] MEDS ORDERED: GI COCKTAIL ED USE PO ONE (00:09)
[2022-07-06] MEDS ORDERED: FAMOTIDINE 20MG IV PUSH 20 MG/5 ML SYR IV STA (00:09)
[2022-07-06 01:02] LABS: C Reactive Protein 9.39 mg/dl (0-0.5); Uric Acid 9.5 mg/dl (2.6-7.2)
[2022-07-06] MEDS ORDERED: MoRPHine SULFATE 4 MG/ML 1 ML CARP\\VIAL IV STA (01:29)
[2022-07-06] MEDS ORDERED: OPTIRAY 350 100ml IV ONE (02:03)
[2022-07-06] MEDS ORDERED: cefTRIAXone SODIUM 2,000 MG/70 ML BAG IV STA (02:40)
[2022-07-06] MEDS ORDERED: methylPREDNISolone 125 MG/2 ML VIAL IV STA (02:40)
[2022-07-06] MEDS ORDERED: POLYETHYLENE (MIRALAX) 17 GM PACK PO PRN (06:15)
[2022-07-06] MEDS ORDERED: HYDROmorphone INJ 0.5 MG/0.5 ML SYR IV PRN ×2 (06:15→13:29)
[2022-07-06] MEDS ORDERED: ACETAMINOPHEN 325 MG TAB PO PRN ×2 (06:15→13:29)
[2022-07-06] MEDS ORDERED: KETOROLAC TROMETHAMINE 15 MG/ML VIAL IV ONE (06:15)
[2022-07-06] MEDS ORDERED: ONDANSETRON INJ 2 MG/ML 2 ML VIAL IV PRN (06:15)
[2022-07-06] MEDS ORDERED: SODIUM CHLORIDE 0.9% 1000ML 1,000 ML IV SCH (06:15)
--- NOTE | 2022-07-06 07:15 | Ultrasound Report ---
RIGHT LOWER EXTREMITY VENOUS DOPPLER HISTORY: R leg pain COMPARISON STUDY: None. FINDINGS: There is normal compressibility, flow, and augmentation within the right lower extremity de ep venous system. IMPRESSION: No DVT within the right lower extremity ACT 112: Negative or not required by law. Electronically signed by: Roberto Hannon M.D. 07/06/2022 7:14 AM
--- NOTE | 2022-07-06 07:23 | CT Scan Report ---
RIGHT ANKLE CT with contrast CT DOSE: 177.23 mGy.cm HISTORY: R ankle erythema, edema, leukocytosis, hx gout TECHNIQUE: Multiaxial CT images of the right ankle were performed and reformatted in the sagittal and coronal plane following the intravenous administration of contrast. A dose lowering technique was u tilized adhering to the principles of ALARA. COMPARISON: Right ankle radiograph 07/05/2022. FINDINGS: No acute fracture or dislocation within the right ankle. No erosive changes. Mild subcutane ous edema. There is mild to moderate osteoarthritis at the ankle joint. Irregularity at the medial ma lleolus likely represents old avulsion injuries. No erosive changes identified. No soft tissue masses or calcifications. There are mild to moderate degenerative changes within the midfoot. Small plantar and posterior calcaneal spurs are noted. IMPRESSION: 1. No acute fracture or dislocation within the right ankle. 2. No erosive changes. 3. No tophaceous deposits identified. ACT 112: Negative or not required by law. Electronically signed by: Roberto Hannon M.D. 07/06/2022 7:22 AM
--- NOTE | 2022-07-06 07:52 | History and Physical Report ---
DATE OF ADMISSION: 07/06/2022 CHIEF COMPLAINT: Right knee and ankle pain. HISTORY OF PRESENT ILLNESS: A 47-year-old male with past medical history significant for gouty arthropathy, chronic gouty tophi, compound heterozygous MTHFR mutation, history of pulmonary edema, pneumonia, history of sleep apnea, history of pulmonary embolism, history of SVT, hypertension, GERD, lumbar disc radiculopathy, obesity, history of ARDS, history of septic shock, history of malignant melanoma of the skin, presents with right ankle and knee pain. The patient has history of gout and he is on allopurinol 600mg p.o. daily. About 2 weeks ago, he ran out all the medications and called his recreation therapy aides teacher for refills. He did not see the recreation therapy aides teacher for last 3 years. He was asked to followup with o PCP and get referred again. For the last 2 days, he has noticed pain in the right ankle and knee, he could not put weight on the legs and having ambulatory dysfunction. For this reason, he came here. He was also in the ER, couple of days ago for feeling spasm of the right lower extremity. At that time, ultrasound was offered, but the patient declined and he was discharged. Today when he came in, he was having temp spike and his white count also went up from 8.5 on 07/03/2022 to 13.9 today. Right ankle is slightly swollen and erythematous and tender. Right knee has no erythema or swelling. There was some mild tenderness on the lateral aspect lateral aspect of the right knee. The patient is hemodynamically stable, resting comfortably. Denies any chest pain, no shortness of breath. No cough. The patient was given hydromorphone and received GI cocktail for GERD in the ER. Currently, denies any complaints. No nausea, no abdominal pain. Normal bowel and bladder movements. No headache, no dizziness, no blurred visions, no earache, no runny nose, no sore throat. No cough. ALLERGIES: ASPIRIN AND CODEINE. PAST MEDICAL HISTORY: As mentioned above. PAST SURGICAL HISTORY: Dental surgery, EGD with endoscopic ultrasound, ERCP for choledocholithiasis and stent placement, appendectomy, inguinal hernia repair. MEDICATIONS: He is supposed to be on allopurinol 600 mg p.o. at bedtime, amlodipine 10 mg p.o. a.m., and Protonix 40 mg p.o. at bedtime. FAMILY HISTORY: Significant for father had lung cancer. Mother had thyroid cancer. Sister has thyroid cancer. Father has diabetes, gout, Crohn's disease. Mother had diabetes, hypertension, and thyroid disorder. Sister has thyroid disorder. SOCIAL HISTORY: Single, no smoking, no alcohol, no drug use. REVIEW OF SYSTEMS: As per HPI. Rest of review of systems is negative. PHYSICAL EXAMINATION: GENERAL: The patient is morbidly obese, not in acute distress. VITAL SIGNS: Temperature 37.7, pulse 70, respiratory rate 17, blood pressure 102/74, oxygen 97% on room air. HEENT: Pupils equal, round and reactive to light. Oral mucosa moist. NECK: No JVD. No neck masses. CARDIOVASCULAR: S1 and S2 heard. Regular rate and rhythm. No murmur, no gallop. RESPIRATORY SYSTEM: Normal AP diameter. No accessory muscle use. No wheezing, no crackles. ABDOMEN: Soft, bowel sounds present, nontender, no distention. CENTRAL NERVOUS SYSTEM: Cranial nerves II-XII grossly intact, nonfocal. EXTREMITIES: Right knee is tender on palpation on the lateral aspect. The right ankle is swollen and erythematous in the medial aspect and tender. LABORATORY DATA: WBC 13.9, hemoglobin 15.4, hematocrit 42.9, platelets 287. ESR 56. Sodium 137, potassium 3.4, chloride 102, bicarbonate 26, BUN 22, creatinine 1.2, serum glucose 115. Lactate 0.9. Uric acid 9.5, calcium 9.8, total bilirubin 0.8, AST 13, ALT 20, alkaline phosphatase 57. Troponin I high sensitivity 6.4. C-reactive protein 9.3. Procalcitonin 0.08. SARS-CoV-2 rapid test negative. IMAGING: Ankle CT of the right side, preliminary report, no acute findings. Venous Doppler right lower extremity, preliminary report, no DVT. EKG: Sinus tachycardia at a rate of 101, possible left atrial enlargement, no significant change was found. ASSESSMENT AND PLAN: This is a 47-year-old female who presents with right ankle and right knee pain. 1. Right ankle and right knee pain. Some erythematous changes in right ankle. History of gout in the past. He ran out allopurinol couple of weeks ago. Uric acid is 9.5. C-reactive protein 9.3. ESR 56. White count is 13.9. He has mild temperature spike in the ER, possibility of gout flare and possibility of cellulitis. He received Solu-Medrol and Rocephin IV in the ER. We will continue with IV Rocephin daily and also Solu-Medrol 20 mg b.i.d. and restart his allopurinol and taper of steroids .IV Dilaudid for pain while in the hospital. Follow up with PCP and Rheumatology. Follow the response. Follow the cultures. 2. History of hypertension: Continue amlodipine. 3. History of gastroesophageal reflux disease: Continue Protonix. 4. History of obstructive sleep apnea. CPAP q hs.. 5. Morbid obesity: Needs counseling. 6. Hx of PE 10yr ago and was on Coumadin fo one year as per patient. 7, Deep venous thrombosis prophylaxis: We will place him on Lovenox. DISPOSITION: Monitor in the medical floor. PT/OT prior to discharge. Social service to help with discharge planning. Job ID: [id number] YASMIN
--- NOTE | 2022-07-06 08:04 | XRay Report ---
RIGHT ANKLE 3 VIEWS HISTORY: R ankle pain and edema COMPARISON: None. FINDINGS: There is no fracture or dislocation. Mild diffuse soft tissue swelling. There are mild to m oderate degenerative changes within the ankle and hindfoot. No erosive changes identified. No soft ti ssue calcifications. Small posterior calcaneal spur is noted. No radiopaque foreign bodies. IMPRESSION: Degenerative changes within the right ankle. No acute fractures. ACT 112: Negative or not required by law. Electronically signed by: Roberto Hannon M.D. 07/06/2022 8:03 AM
--- NOTE | 2022-07-06 08:53 | XRay Report ---
XR knee RT 3V CLINICAL HISTORY: right knee pain COMPARISON STUDY: Right knee 01/28/2006. FINDINGS: There is mild tricompartmental osteoarthritis which has progressed in the interval. There i s a large knee effusion, unchanged. No erosive changes. No acute fracture or dislocation. No radiopaq ue foreign bodies. IMPRESSION: 1. Large right knee effusion, unchanged. 2. Mild tricompartmental osteoarthritis. ACT 112: Negative or not required by law. Electronically signed by: Roberto Hannon M.D. 07/06/2022 8:51 AM
[2022-07-06] MEDS ORDERED: POTASSIUM CHLORIDE CRTAB 20 MEQ TABCR PO STA (08:59)
[2022-07-06] MEDS ORDERED: FAMOTIDINE 20 MG in SYRINGE 3 ML IV SCH (09:00)
[2022-07-06] MEDS: amLODIPine BESYLATE 5 MG TAB PO SCH (09:14)
[2022-07-06] MEDS: ENOXAPARIN INJ 40 MG/0.4 ML SYR SQ SCH ×2 (09:15→20:44)
--- NOTE | 2022-07-06 10:16 | Electrocardiogram Report ---
Test Reason : Blood Pressure : / mmHG Vent. Rate : 101 BPM Atrial Rate : 101 BPM P-R Int : 154 ms QRS Dur : 102 ms QT Int : 346 ms P-R-T Axes : 037 -02 036 degrees QTc Int : 448 ms Sinus tachycardia Left atrial enlargement Incomplete right bundle branch block Borderline ECG When compared with ECG of 05-MAR-2021 21:28, No significant change was found Confirmed by Yonathan Ford ([id number]) on 07/06/2022 10:16:32 AM Referred By: REFERRED SELF Confirmed By:Yonathan Ford
[2022-07-06 11:32] LABS: Appearance Synovial Fluid Cloudy; Color Synovial Fluid Straw; Mononuclear WBC Synovial 6.3 %; Polynuclear WBC Synovial 93.7 %; RBC Synovial Fluid Auto < 2000 /uL; Source Synovial Fluid Knee; WBC Synovial Fluid Auto 31830 /ul (0-200)
--- NOTE | 2022-07-06 12:44 | Hospitalist Progress Note ---
Date of Service July 06, 2022 Assessment & Plan (1) Acute gout: (2) Effusion, right knee: (3) Hypokalemia: (4) HTN (hypertension): (5) LAKE on CPAP: Plan This is a 47-year-old male with significant past medical history of gouty arthropathy, compound heterozygous MTHFR mutation, LAKE on CPAP, HTN, history of PE, history of SVT, obesity and history of malignant melanoma who presented to ED secondary to right ankle and knee pain. Uric acid 9.5, ESR 56, CRP 9.3, wbc 13.93k Pt admitted due to ambulatory dysfunction 2/2 acute gout flare and possible cellulitis Acute Gout of R ankle Knee Possible R ankle cellulitis admit to med/surg continue IV solumedrol prn analgesia orthopedics consult appreciated s/p aspiration and fluid sent for analysis, w bc 31,830 blood cultures pending continue IV rocephin for possible cellulitis Hypokalemia replete with oral KCL repeat in a.m HTN continue amlodipine LAKE cpap at HS Gerd continue PPI Morbid Obesity BMI 38.7 encourage weight loss and healthy life style DVT ppx/Hx of PE/MTHFR heterozygote: Lovenox SQ BID Pt was seen and examined in collaboration with Dr. Mosqueda, please see addendum Todays visit is not a billable service as he was admitted after 00:00 on 07/06/22. Admission and Anticipated Discharge Date Admission Date: July 06, 2022 Supervising Physician Co-Signing Physician Notes Pt seen and examined by me , care coordinated w/ Josefa Khoury PA-C, pls refer to her note above for further detail. Patient admitted with gout flare, and possible cellulitis. Has knee effusion, and erythematous ankle. Septic joint to be ruled out. Orthopedics was consulted. IV ceftriaxone started on admission. Patient reports that his erythema of ankle is already much improved from yesterday. Pain is also improved. At the bedside, currently orthopedic PA present and aspirating right knee effusion, yellow fluid aspirated, without pus. Fluid sent to lab for further evaluation. Patient is otherwise lying in bed, in no acute distress. Denies any fevers chills chest pain shortness of breath at this time. No abdominal pain, no nausea or vomiting. Overall feeling better already. Continue antibiotics for now, await final results of fluid studies. Allopurinol was restarted, patient was also started on Solu-Medrol on admission, continue for now. Appreciate orthopedics' assistance. MD Jaylin Subjective Patient was seen and examined in room 317. Follow-up right ankle pain, swelling, redness and right knee pain. He denies any trauma to right lower extremity or injury. He has history of gout, not tophaceous, and multiple joints including ankle, knee, fingers and elbows. Currently his right ankle feels similar to prior gout episodes. He previously followed with rheumatology but has not been seen by them in 3 years. He recently ran out of allopurinol approximately 2 weeks ago. Symptoms started abruptly 2 days ago when he noticed pain in the right knee and ankle. Prior to admission he had significant redness to the right ankle, but this has since been improved. He has decreased range of motion, hypersensitivity to touch and denies any numbness or tingling to the lower extremity. He states in the past he required aspiration to the right knee by Dr. Hartley. He denies any fever, chills, sweats, lightheadedness, dizziness, chest pain, shortness breath, nausea, vomit, abdominal pain. He is tolerating diet regularly. Review of Systems Review of Systems: All systems reviewed & are unremarkable except as noted in HPI & below Physical Exam Physical Exam: Gen: WD/WN, NAD, A&O x3 HEENT: Normocephalic, atraumatic, conjunctivae moist, sclerae anicteric, mucous membranes moist. Lung: Clear to Auscultation bilaterally, no wheezes/rales/rhonchi Heart: Regular rate, regular rhythm, no murmurs, rubs, or gallops Abdomen: Soft, NT, ND +BS x 4 Extremities: R knee suprapatellar effusion, no warmth or erythema, R ankle + warmth, medial malleolar soft tissue swelling, pain with minimal palpation Skin: Warm, no rash, negative turgor. Results & Data Results & Data ([facility]) Vital Signs (Past 12 Hours) Vital Signs Temp Pulse Resp BP BP Pulse Ox O2 Del Method 07/06/22 07:41 37.5 C 78 20 145/81 H 93 Room Air 07/06/22 06:00 37.3 C 93 H 18 168/98 H 94 Room Air 07/06/22 05:33 88 14 143/98 H 92 Room Air 07/06/22 04:00 78 17 122/74 97 Room Air 07/06/22 02:00 95 H 20 160/97 H 95 Room Air Laboratory Results Short CBC 07/05/22 Range/Units 22:35 WBC 13.93 H (4.8-10.8) K/ul Hgb 15.5 (14.0-18.0) g/dl Hct 42.9 (42.0-52.0) % Plt Count 287 (130-400) K/uL BMP 07/05/22 22:35 Sodium 137 Potassium 3.4 L Chloride 102 Carbon Dioxide 26 BUN 22 Creatinine 1.28 Glucose 115 H Calcium 9.8 Liver Function 07/05/22 Range/Units 22:35 Total Bilirubin 0.8 (0.2-1.0) mg/dl AST 13 (13-39) U/L ALT 20 (7-52) U/L Alkaline Phosphatase 57 (34-104) U/L Albumin 4.1 (3.4-5.0) gm/dl Diagnostic Findings Ankle X-Ray 07/05/22 23:21 RIGHT ANKLE 3 VIEWS HISTORY: R ankle pain and edema COMPARISON: None. FINDINGS: There is no fracture or dislocation. Mild diffuse soft tissue swelling. There are mild to moderate degenerative changes within the ankle and hindfoot. No erosive changes identified. No soft tissue calcifications. Small posterior calcaneal spur is noted. No radiopaque foreign bodies. IMPRESSION: Degenerative changes within the right ankle. No acute fractures. ACT 112: Negative or not required by law. Electronically signed by: Roberto Hannon M.D. 07/06/2022 8:03 AM Venous Doppler Study 07/05/22 23:21 RIGHT LOWER EXTREMITY VENOUS DOPPLER HISTORY: R leg pain COMPARISON STUDY: None. FINDINGS: There is normal compressibility, flow, and augmentation within the right lower extremity deep venous system. IMPRESSION: No DVT within the right lower extremity ACT 112: Negative or not required by law. Electronically signed by: Roberto Hannon M.D. 07/06/2022 7:[address] 07/06/22 01:[address] with contrast CT DOSE: 177.23 mGy.cm HISTORY: R ankle erythema, edema, leukocytosis, hx gout TECHNIQUE: Multiaxial CT images of the right ankle were performed and reformatted in the sagittal and coronal plane following the intravenous administration of contrast. A dose lowering technique was utilized adhering to the principles of ALARA. COMPARISON: Right ankle radiograph 07/05/2022. FINDINGS: No acute fracture or dislocation within the right ankle. No erosive changes. Mild subcutaneous edema. There is mild to moderate osteoarthritis at the ankle joint. Irregularity at the medial malleolus likely represents old avulsion injuries. No erosive changes identified. No soft tissue masses or calcifications. There are mild to moderate degenerative changes within the midfoot. Small plantar and posterior calcaneal spurs are noted. IMPRESSION: 1. No acute fracture or dislocation within the right ankle. 2. No erosive changes. 3. No tophaceous deposits identified. ACT 112: Negative or not required by law. Electronically signed by: Roberto Hannon M.D. 07/06/2022 7:22 AM Knee X-Ray 07/06/22 06:15 XR knee RT 3V CLINICAL HISTORY: right knee pain COMPARISON STUDY: Right knee 01/28/2006. FINDINGS: There is mild tricompartmental osteoarthritis which has progressed in the interval. There is a large knee effusion, unchanged. No erosive changes. No acute fracture or dislocation. No radiopaque foreign bodies. IMPRESSION: 1. Large right knee effusion, unchanged. 2. Mild tricompartmental osteoarthritis. ACT 112: Negative or not required by law. Electronically signed by: Roberto Hannon M.D. 07/06/2022 8:51 AM Medications Administered Current Inpatient Medications Acetaminophen (Acetaminophen 325 Mg Tab) 650 mg PO Q4H PRN PRN Reason: pain/fever- Pain (1,2,3,4,5) Stop: 08/05/22 06:14 Allopurinol (Allopurinol 300 Mg Tab) 600 mg PO HS RUTH Stop: 08/05/22 20:59 Amlodipine Besylate (Amlodipine Besylate 5 Mg Tab) 10 mg PO QAM RUTH Stop: 08/05/22 08:59 Last Admin: 07/06/22 09:14 Dose: 10 mg Enoxaparin Sodium (Enoxaparin Inj 40 Mg/0.4 Ml Syr) 40 mg SQ Q12H RUTH Stop: 08/05/22 08:59 Last Admin: 07/06/22 09:15 Dose: 40 mg Hydromorphone HCl (Hydromorphone Inj 0.5 Mg/0.5 Ml Syr) 0.5 mg IV Q4H PRN PRN Reason: mod/severe pain (6,7,8,9,10) Stop: 07/20/22 06:14 Ceftriaxone Sodium 2,000 mg/ (Dextrose) 70 mls @ 100 mls/hr IV Q24H RUTH; Protocol Stop: 07/14/22 04:29 Sodium Chloride (Nss 1000ml) 1,000 mls @ 80 mls/hr IV .[id number] [facility] Stop: 07/06/22 18:44 Last Admin: 07/06/22 06:42 Dose: 80 mls/hr Methylprednisolone 20 mg/ (Syringe) 0.32 mls @ 1.5 mls/min IV Q12H [facility] Stop: 08/05/22 14:59 Ondansetron HCl (Ondansetron Inj 2 Mg/Ml 2 Ml Vial) 4 mg IV Q6H PRN PRN Reason: Nausea Stop: 08/05/22 06:14 Pantoprazole Sodium (Pantoprazole 40 Mg Tab) 40 mg PO HS RUTH Stop: 08/05/22 20:59 Polyethylene Glycol (Polyethylene (Miralax) 17 Gm Pack) 17 gm PO DAILY PRN PRN Reason: Constipation Stop: 08/05/22 06:14
--- NOTE | 2022-07-06 12:58 | Orthopedic Consultation ---
Date of Consultation July 06, 2022 Assessment & Plan (1) Acute right ankle pain: Suspect gout in the right lower extremity and ankle. He may have some surrounding cellulitis as well. He does have edema but no real joint effusion is appreciated. Encouraged ankle range of motion. He can weight-bear as to lerated. We elected not to do any type of aspiration or injection to the ankle this morning. He does have an elevated uric acid, white blood cell count, sedimentation rate and CRP. Encouraged elevation. He could use a Jesus stocking for compression if he is able to tolerate it. Work on gentle range of motion as tolerated. We will continue to follow. Continue the IV Solu-Medrol and gout treatment as per the primary service. (2) Effusion, right knee: He does have a moderate effusion to his right knee. He wished to have it aspirated for comfort. I also think this would be beneficial to rule out infection and diagnose gout. He tolerated the aspiration well. No cortisone injection was given. Compressive wrap with Boris bandage was provided to the knee today. He can do full range of motion of the right knee as tolerated. He can weight-bear as tolerated in the right lower extremity with or without an assistive device. He can apply ice to the knee as needed. We will follow the fluid analysis and cell count, Gram stain stain and aerobic and anaerobic cultures and crystal analysis. Lyme test was also ordered from the synovial fluid. He understands and agrees with the plan. We will continue to follow. If his symptoms continue to improve and no evidence of infection then no surgical intervention is planned.Findings were discussed with Dr. Sinclair. Procedure: Aspiration to the right knee was recommended and requested. Timeout verbal consent was obtained. His right knee was extended on the hospital bed. The superolateral pouch was cleansed with Betadine and alcohol alcohol. I then aspirated 45 cc of dark yellow fluid from the right knee. No purulence was noted. The fluid was sent for fluid analysis, anaerobic and aerobic cultures, Gram stain, crystal analysis and Lyme titer. Pressure was applied to the aspiration site. A Band-Aid was applied an Boris bandage was applied locally to the knee. Tolerated the procedure without any complications. Supervising Physician Co-Signing Physician Notes I saw and examined the patient, and agree with above note. I interpreted his diagnostic testing - right knee aspiration consistent with gout, x-rays and CT scan show mild right ankle arthritis, and x-rays show mild right knee arthritis - and performed the substantive portion of the visit. Dasia Parks PA-C performed the aspiration. Diagnosis is gouty flare in his right knee and ankle. Plan is for medical management. No surgery indicated. Follow-up with rheumatology after discharge. No orthopaedic followup required. History of Present Illness Reason for Consultation: Right knee swelling and pain; right ankle pain and swelling Attending Physician: Jesse Mosqueda MD History of Present Illness Patient is a pleasant 47-year-old male who was admitted to the hospital for an acute "gout flare". He states that 2 weeks ago he ran out of his allopurinol medication. He gets this from his senior materials analyst-Dr. Hartley. He was told that he needed to come in for an appointment prior to getting a refill as it had been many years since they had evaluated him. He states that he has a longstanding history of having gout. He has gotten his fingers his knees and his ankles in the past. He states that he was in the emergency room 2 nights ago with complaints of some right knee pain and discomfort. Did not feel like gout but x-rays were taken and he was found to have some arthritis. He states it was not very swollen at the time. He was discharged and advised to return if his symptoms progress. He then returned yesterday with increased pain and swelling in the knee as well as edema in the lower leg and pain in that ankle. He recently lost a friend to a blood clot so he was concerned for that. His ultrasound was negative. Denies any known injury. He states that his ankle feels "exactly like gout". He did have a small low-grade temperature. He is on IV Solu-Medrol and antibiotics that were started in the emergency room. He states that since yesterday he feels significantly better. His ankle is less swollen and less red. He still has trouble with ambulating because of his right knee. He states in the past he has had his knee drained and cortisone injections in both the knees and the ankles. He states this was last done over 3 years ago. He has not had any new injury. Denies any fevers or chills at home. He was admitted for care. Allergies Allergy/AdvReac Type Severity Reaction Status Date / Time aspirin Allergy Unknown Unknown Verified 07/06/22 08:58 codeine AdvReac Intermediate MENTAL Verified 07/06/22 08:58 CHANGES/WILD Home Medications Medication Instructions Recorded Confirmed Type allopurinol 300 mg tablet 600 mg PO DAILY 09/05/18 07/06/22 History amlodipine 10 mg tablet 10 mg PO QAM 09/05/18 07/06/22 History pantoprazole 40 mg tablet,delayed 40 mg PO DAILY 09/05/18 07/06/22 History release Patient History Medical History (Updated 07/06/22 @ 14:29 by Redd Correia PA-C) DVT (deep venous thrombosis) HX-WAS ON THINNERS AND OFF-NO RECENT ISSUES PER PT GERD (gastroesophageal reflux disease) Gout HTN (hypertension) Kidney stones Obesity Sleep apnea CPAP SVT (supraventricular tachycardia) Surgical History History of cystoscopy FOR KIDNEY STONES History of inguinal hernia repair History of tooth extraction WISDOM TEETH Malignant melanoma of skin BACK/HEAD S/P appy Family History Mother Family history of diabetes mellitus Other No pertinent family history in first degree relatives Social History Smoking Status: Never smoker Tobacco Type: Cigarettes Second Hand Exposure: Yes (PARENTS); Hx Alcohol Use: No Hx Substance Use: No Preferred Language: Ecuadorean Communication Ability: Effective 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 Moderate effusion to the right knee. Tolerates active range of motion about 5 degrees of extension to 110 degrees of flexion. He is unable to independently straight leg raise due to pain in the right knee. Tolerates logrolling of the hip. Tolerates passive range of motion of the knee. Stable ligamentous exam to the right knee. No ecchymosis. No prepatellar effusion. medial and lateral joint line tenderness mildly with palpation today. No calf discomfort. Calf is supple. Exam of the right ankle: He does have edema down to the foot and ankle. He has some medial and lateral erythema-pinkish discoloration. This is mildly tender to the touch. The ankle is not warm. Digits I do not appreciate an ankle effusion. He tolerates active range of motion of the ankle joint and normal strength. Tolerates passive range of motion. His toes are nontender with palpation. He is able to fully move his toes without discomfort. He does have chronic diminished sensation in both of his feet from peripheral neuropathy of unknown etiology. Results & Data ([facility]) Vital Signs (Past 12 Hours) Vital Signs Temp Pulse Resp BP BP Pulse Ox O2 Del Method 07/06/22 07:41 37.5 C 78 20 145/81 H 93 Room Air 07/06/22 06:00 37.3 C 93 H 18 168/98 H 94 Room Air 07/06/22 05:33 88 14 143/98 H 92 Room Air 07/06/22 04:00 78 17 122/74 97 Room Air 07/06/22 02:00 95 H 20 160/97 H 95 Room Air Laboratory Results 07/06/22 07/06/22 07/06/22 Range/Units Unknown Unknown Unknown WBC (4.8-10.8) K/ul RBC (4.70-6.10) M/uL Hgb (14.0-18.0) g/dl Hct (42.0-52.0) % MCV (80.0-100.0) fL MCH (25.0-34.0) pg MCHC (32.0-36.0) g/dL RDW Std Deviation (36.4-46.3) fL RDW Coeff of Ciera (11.5-14.5) % Plt Count (130-400) K/uL MPV (9.4-12.4) fL Immature Gran % (Auto) % Neut % (Auto) % Lymph % (Auto) % [place] % (Auto) % Eos % (Auto) % Baso % (Auto) % Neut # (Auto) (1.40-6.50) K/uL Lymph # (Auto) (1.2-3.4) K/uL [place] # (Auto) (0.11-0.59) K/uL Eos # (Auto) (0-0.50) K/uL Baso # (Auto) (0-0.2) K/uL Immature Gran # (Auto) (0.01-0.20) K/uL ESR (0-15) mm/hr Sodium (136-145) mmol/L Potassium (3.5-5.1) mmol/L Chloride (98-107) mmol/L Carbon Dioxide (21-32) mmol/L Anion Gap (3-11) BUN (6-23) mg/dl Creatinine (0.6-1.4) mg/dl Est Cr Clr Drug Dosing Est GFR ( Amer) ml/min Est GFR (Non-Af Amer) ml/min BUN/Creatinine Ratio (10-20) Glucose (70-99(Fasting)) mg/dl Lactate (0.4-2.0) mmol/L Uric Acid (2.6-7.2) mg/dl Calcium (8.5-10.1) mg/dl Total Bilirubin (0.2-1.0) mg/dl AST (13-39) U/L ALT (7-52) U/L Alkaline Phosphatase (34-104) U/L Troponin I High Sens (0-20) pg/ml C-Reactive Protein (0-0.5) mg/dl Total Protein (6.0-8.3) gm/dl Albumin (3.4-5.0) gm/dl Globulin (2.5-4.0) gm/dl Albumin/Globulin Ratio (0.9-2) Procalcitonin (0-0.5) ng/ml Fld Lyme DNA (PCR) Pending Fluid Comment Synovial Source Knee Synovial Color Straw Synovial Appearance Cloudy Synovial WBC (Auto) 02657 H (0-200) /ul Synovial RBC (Auto) < 2000 /uL Synovial Polynuclear % 93.7 % Synovial Mononuclear % 6.3 % Synovial Crystals Pending Lyme Specimen Source Pending SARS-CoV-2, RNA, NAAT (NEGATIVE) 07/06/22 07/05/22 07/05/22 Range/Units 02:53 23:52 23:50 WBC (4.8-10.8) K/ul RBC (4.70-6.10) M/uL Hgb (14.0-18.0) g/dl Hct (42.0-52.0) % MCV (80.0-100.0) fL MCH (25.0-34.0) pg MCHC (32.0-36.0) g/dL RDW Std Deviation (36.4-46.3) fL RDW Coeff of Ciera (11.5-14.5) % Plt Count (130-400) K/uL MPV (9.4-12.4) fL Immature Gran % (Auto) % Neut % (Auto) % Lymph % (Auto) % [place] % (Auto) % Eos % (Auto) % Baso % (Auto) % Neut # (Auto) (1.40-6.50) K/uL Lymph # (Auto) (1.2-3.4) K/uL [place] # (Auto) (0.11-0.59) K/uL Eos # (Auto) (0-0.50) K/uL Baso # (Auto) (0-0.2) K/uL Immature Gran # (Auto) (0.01-0.20) K/uL ESR (0-15) mm/hr Sodium (136-145) mmol/L Potassium (3.5-5.1) mmol/L Chloride (98-107) mmol/L Carbon Dioxide (21-32) mmol/L Anion Gap (3-11) BUN (6-23) mg/dl Creatinine (0.6-1.4) mg/dl Est Cr Clr Drug Dosing Est GFR ( Amer) ml/min Est GFR (Non-Af Amer) ml/min BUN/Creatinine Ratio (10-20) Glucose (70-99(Fasting)) mg/dl Lactate 0.9 (0.4-2.0) mmol/L Uric Acid (2.6-7.2) mg/dl Calcium (8.5-10.1) mg/dl Total Bilirubin (0.2-1.0) mg/dl AST (13-39) U/L ALT (7-52) U/L Alkaline Phosphatase (34-104) U/L Troponin I High Sens 6.4 (0-20) pg/ml C-Reactive Protein (0-0.5) mg/dl Total Protein (6.0-8.3) gm/dl Albumin (3.4-5.0) gm/dl Globulin (2.5-4.0) gm/dl Albumin/Globulin Ratio (0.9-2) Procalcitonin (0-0.5) ng/ml Fld Lyme DNA (PCR) Fluid Comment Synovial Source Synovial Color Synovial Appearance Synovial WBC (Auto) (0-200) /ul Synovial RBC (Auto) /uL Synovial Polynuclear % % Synovial Mononuclear % % Synovial Crystals Lyme Specimen Source SARS-CoV-2, RNA, NAAT NEGATIVE (NEGATIVE) 07/05/22 07/05/22 07/05/22 Range/Units 22:35 22:35 22:35 WBC (4.8-10.8) K/ul RBC (4.70-6.10) M/uL Hgb (14.0-18.0) g/dl Hct (42.0-52.0) % MCV (80.0-100.0) fL MCH (25.0-34.0) pg MCHC (32.0-36.0) g/dL RDW Std Deviation (36.4-46.3) fL RDW Coeff of Ciera (11.5-14.5) % Plt Count (130-400) K/uL MPV (9.4-12.4) fL Immature Gran % (Auto) % Neut % (Auto) % Lymph % (Auto) % [place] % (Auto) % Eos % (Auto) % Baso % (Auto) % Neut # (Auto) (1.40-6.50) K/uL Lymph # (Auto) (1.2-3.4) K/uL [place] # (Auto) (0.11-0.59) K/uL Eos # (Auto) (0-0.50) K/uL Baso # (Auto) (0-0.2) K/uL Immature Gran # (Auto) (0.01-0.20) K/uL ESR 56 H (0-15) mm/hr Sodium 137 (136-145) mmol/L Potassium 3.4 L (3.5-5.1) mmol/L Chloride 102 (98-107) mmol/L Carbon Dioxide 26 (21-32) mmol/L Anion Gap 9 (3-11) BUN 22 (6-23) mg/dl Creatinine 1.28 (0.6-1.4) mg/dl Est Cr Clr Drug Dosing Not Reportable Est GFR ( Amer) 77.3 ml/min Est GFR (Non-Af Amer) 66.7 ml/min BUN/Creatinine Ratio 17.2 (10-20) Glucose 115 H (70-99(Fasting)) mg/dl Lactate (0.4-2.0) mmol/L Uric Acid 9.5 H (2.6-7.2) mg/dl Calcium 9.8 (8.5-10.1) mg/dl Total Bilirubin 0.8 (0.2-1.0) mg/dl AST 13 (13-39) U/L ALT 20 (7-52) U/L Alkaline Phosphatase 57 (34-104) U/L Troponin I High Sens (0-20) pg/ml C-Reactive Protein 9.39 H (0-0.5) mg/dl Total Protein 7.8 (6.0-8.3) gm/dl Albumin 4.1 (3.4-5.0) gm/dl Globulin 3.7 (2.5-4.0) gm/dl Albumin/Globulin Ratio 1.1 (0.9-2) Procalcitonin 0.08 (0-0.5) ng/ml Fld Lyme DNA (PCR) Fluid Comment Synovial Source Synovial Color Synovial Appearance Synovial WBC (Auto) (0-200) /ul Synovial RBC (Auto) /uL Synovial Polynuclear % % Synovial Mononuclear % % Synovial Crystals Lyme Specimen Source SARS-CoV-2, RNA, NAAT (NEGATIVE) 07/05/22 Range/Units 22:35 WBC 13.93 H (4.8-10.8) K/ul RBC 4.98 (4.70-6.10) M/uL Hgb 15.5 (14.0-18.0) g/dl Hct 42.9 (42.0-52.0) % MCV 86.1 (80.0-100.0) fL MCH 31.1 (25.0-34.0) pg MCHC 36.1 H (32.0-36.0) g/dL RDW Std Deviation 41.5 (36.4-46.3) fL RDW Coeff of Ciera 13.4 (11.5-14.5) % Plt Count 287 (130-400) K/uL MPV 9.5 (9.4-12.4) fL Immature Gran % (Auto) 0.3 % Neut % (Auto) 67.7 % Lymph % (Auto) 17.6 % Bates % (Auto) 13.4 % Eos % (Auto) 0.6 % Baso % (Auto) 0.4 % Neut # (Auto) 9.44 H (1.40-6.50) K/uL Lymph # (Auto) 2.45 (1.2-3.4) K/uL Bates # (Auto) 1.86 H (0.11-0.59) K/uL Eos # (Auto) 0.08 (0-0.50) K/uL Baso # (Auto) 0.06 (0-0.2) K/uL Immature Gran # (Auto) 0.04 (0.01-0.20) K/uL ESR (0-15) mm/hr Sodium (136-145) mmol/L Potassium (3.5-5.1) mmol/L Chloride (98-107) mmol/L Carbon Dioxide (21-32) mmol/L Anion Gap (3-11) BUN (6-23) mg/dl Creatinine (0.6-1.4) mg/dl Est Cr Clr Drug Dosing Est GFR ( Amer) ml/min Est GFR (Non-Af Amer) ml/min BUN/Creatinine Ratio (10-20) Glucose (70-99(Fasting)) mg/dl Lactate (0.4-2.0) mmol/L Uric Acid (2.6-7.2) mg/dl Calcium (8.5-10.1) mg/dl Total Bilirubin (0.2-1.0) mg/dl AST (13-39) U/L ALT (7-52) U/L Alkaline Phosphatase (34-104) U/L Troponin I High Sens (0-20) pg/ml C-Reactive Protein (0-0.5) mg/dl Total Protein (6.0-8.3) gm/dl Albumin (3.4-5.0) gm/dl Globulin (2.5-4.0) gm/dl Albumin/Globulin Ratio (0.9-2) Procalcitonin (0-0.5) ng/ml Fld Lyme DNA (PCR) Fluid Comment Synovial Source Synovial Color Synovial Appearance Synovial WBC (Auto) (0-200) /ul Synovial RBC (Auto) /uL Synovial Polynuclear % % Synovial Mononuclear % % Synovial Crystals Lyme Specimen Source SARS-CoV-2, RNA, NAAT (NEGATIVE) Fluid analysis and cell count, crystal analysis, Lyme test, Gram stain with anaerobic and aerobic cultures currently pending Diagnostic Findings RIGHT ANKLE 3 VIEWS HISTORY: R ankle pain and edema COMPARISON: None. FINDINGS: There is no fracture or dislocation. Mild diffuse soft tissue swelling. There are mild to moderate degenerative changes within the ankle and hindfoot. No erosive changes identified. No soft tissue calcifications. Small posterior calcaneal spur is noted. No radiopaque foreign bodies. IMPRESSION: Degenerative changes within the right ankle. No acute fractures. XR knee RT 3V CLINICAL HISTORY: right knee pain COMPARISON STUDY: Right knee 01/28/2006. FINDINGS: There is mild tricompartmental osteoarthritis which has progressed in the interval. There is a large knee effusion, unchanged. No erosive changes. No acute fracture or dislocation. No radiopaque foreign bodies. IMPRESSION: 1. Large right knee effusion, unchanged. 2. Mild tricompartmental osteoarthritis. RIGHT ANKLE CT with contrast CT DOSE: 177.23 mGy.cm HISTORY: R ankle erythema, edema, leukocytosis, hx gout TECHNIQUE: Multiaxial CT images of the right ankle were performed and reformatted in the sagittal and coronal plane following the intravenous administration of contrast. A dose lowering technique was utilized adhering to the principles of ALARA. COMPARISON: Right ankle radiograph 07/05/2022. FINDINGS: No acute fracture or dislocation within the right ankle. No erosive changes. Mild subcutaneous edema. There is mild to moderate osteoarthritis at the ankle joint. Irregularity at the medial malleolus likely represents old avulsion injuries. No erosive changes identified. No soft tissue masses or calcifications. There are mild to moderate degenerative changes within the midfoot. Small plantar and posterior calcaneal spurs are noted. IMPRESSION: 1. No acute fracture or dislocation within the right ankle. 2. No erosive changes. 3. No tophaceous deposits identified. RIGHT LOWER EXTREMITY VENOUS DOPPLER HISTORY: R leg pain COMPARISON STUDY: None. FINDINGS: There is normal compressibility, flow, and augmentation within the right lower extremity deep venous system. IMPRESSION: No DVT within the right lower extremity
[2022-07-06] MEDS: methylPREDNISolone 20 MG in SYRINGE 0 ML IV SCH (16:01)
[2022-07-06] MEDS ORDERED: allopurinoL 300 MG TAB PO SCH (21:00)
[2022-07-06] MEDS ORDERED: PANTOprazole 40 MG TAB PO SCH (21:00)
[2022-07-07] MEDS: methylPREDNISolone 20 MG in SYRINGE 0 ML IV SCH (03:56)
[2022-07-07] MEDS ORDERED: cefTRIAXone SODIUM 2,000 MG in DEXTROSE 5% 50 ML IV SCH (04:30)
[2022-07-07 06:18] LABS: Basophils # (auto) 0.03 K/uL (0-0.2); Basophils % (auto) 0.3 %; Eosinophils # (auto) 0.02 K/uL (0-0.50); Eosinophils % (auto) 0.2 %; Hematocrit (blood only) 38.2 % (42.0-52.0); Hemoglobin 13.5 g/dl (14.0-18.0); Immature Granulocytes # (auto) 0.06 K/uL (0.01-0.20); Immature Granulocytes % (auto) 0.5 %; Lymphocytes # (auto) 1.45 K/uL (1.2-3.4); Lymphocytes % (auto) 12.6 %; Mean Corpuscular Hemoglobin 30.8 pg (25.0-34.0); Mean Corpuscular Hgb Conc 35.3 g/dL (32.0-36.0); Mean Platelet Volume 9.7 fL (9.4-12.4); Monocytes # (auto) 1.18 K/uL (0.11-0.59); Monocytes % (auto) 10.3 %; Neutrophils # (auto) 8.74 K/uL (1.40-6.50); Neutrophils % (auto) 76.1 %; Platelet Count 238 K/uL (130-400); Red Blood Count 4.39 M/uL (4.70-6.10); White Blood Count 11.48 K/ul (4.8-10.8)
[2022-07-07 06:27] LABS: BUN Creatinine Ratio 22.3 (10-20); Calcium 9.7 mg/dl (8.5-10.1); Creatinine Clr Calc Pharmacy 106.1 ml/min; Est GFR (African American) 82.7 ml/min; Est GFR (Non-African American) 71.4 ml/min; Magnesium 2.3 mg/dl (1.7-2.4); Potassium 4.1 mmol/L (3.5-5.1)
[2022-07-07] MEDS: ENOXAPARIN INJ 40 MG/0.4 ML SYR SQ SCH (07:59)
[2022-07-07] MEDS: amLODIPine BESYLATE 5 MG TAB PO SCH (08:00)
--- NOTE | 2022-07-07 09:34 | Orthopedic Progress Note ---
Date of Service July 07, 2022 Assessment & Plan (1) Acute right ankle pain: Plan: Ankle pain has improved since starting Solu-Medrol. He has no edema or erythema surrounding the ankle. Encouraged continuing with active range of motion shown alphabet exercise. He may continue with weightbearing as tolerated using walker or assistive device if needed per PT. We will continue to follow. Continue the IV Solu-Medrol and gout treatment as per the primary service. Present on Admission?: Yes (2) Effusion, right knee: Plan: Knee pain has greatly improved since admission and status post arthrocentesis on 07/06/22. He has no findings of effusion on exam today. He is tolerating range of motion and weightbearing activities. Synovial fluid did show crystals that are consistent with gout. Lyme study is still pending. Gram stain final was negative. Aerobic and anaerobic cultures are still pending. He can continue with range of motion weightbearing as tolerated with assistive device as appropriate per PT. He will continue with Solu-Medrol and gout treatment per primary. We will continue to follow cultures. No surgical intervention is planned at this time. Present on Admission?: Yes Admission and Anticipated Discharge Date Admission Date: July 06, 2022 Subjective Patient is a 47-year-old male who is seen bedside this morning at approximately 9 AM. He is alert and oriented x3. He is in good spirits. He states his knee and ankle are both feeling better. He continues to have some pain however overall he feels this is improved since he was initially admitted. He states he is able to bend the knee and move the ankle better. He has been up and ambulating throughout the night using the walker. He rates his right knee pain as 6/10 in the right ankle is 4/10. He denies any increase swelling or any redness. He denies any fever, chills, night sweats, nausea or vomiting, chest pain or shortness of breath.Patient was seen and examined in room 317. Follow-up right ankle pain, swelling, redness and right knee pain. Review of Systems Review of Systems: Please refer to HPI Physical Exam Physical Exam: General: Alert and oriented x3 pleasant Musculoskeletal/integumentary: Skin is normal in color and temperature over the knee and ankle on right. Negative for effusion of knee. Negative for edema or surrounding the ankle. Patient is able to tolerate palpation without complaints of pain at knee joint and ankle. Tolerates range of motion of right knee active 0 degrees extension able to flex to approximately 130 degrees. Able to move ankle in all planes without increased pain. Dorsal pedis pulse is 2+ sensation is intact over right lower extremity. Results & Data ([facility]) Vital Signs (Past 12 Hours) Vital Signs Temp Pulse Resp BP BP Pulse Ox O2 Del Method 07/07/22 07:10 36.4 C L 71 16 129/83 96 Room Air 07/06/22 23:23 37.4 C 89 15 139/90 95 Room Air Laboratory Results 07/07/22 07/07/22 07/06/22 Range/Units 05:25 05:25 Unknown WBC 11.48 H (4.8-10.8) K/ul RBC 4.39 L (4.70-6.10) M/uL Hgb 13.5 L (14.0-18.0) g/dl Hct 38.2 L (42.0-52.0) % MCV 87.0 (80.0-100.0) fL MCH 30.8 (25.0-34.0) pg MCHC 35.3 (32.0-36.0) g/dL RDW Std Deviation 41.0 (36.4-46.3) fL RDW Coeff of Ciera 13.0 (11.5-14.5) % Plt Count 238 (130-400) K/uL MPV 9.7 (9.4-12.4) fL Immature Gran % (Auto) 0.5 % Neut % (Auto) 76.1 % Lymph % (Auto) 12.6 % [place] % (Auto) 10.3 % Eos % (Auto) 0.2 % Baso % (Auto) 0.3 % Neut # (Auto) 8.74 H (1.40-6.50) K/uL Lymph # (Auto) 1.45 (1.2-3.4) K/uL [place] # (Auto) 1.18 H (0.11-0.59) K/uL Eos # (Auto) 0.02 (0-0.50) K/uL Baso # (Auto) 0.03 (0-0.2) K/uL Immature Gran # (Auto) 0.06 (0.01-0.20) K/uL Sodium 139 (136-145) mmol/L Potassium 4.1 D (3.5-5.1) mmol/L Chloride 106 (98-107) mmol/L Carbon Dioxide 27 (21-32) mmol/L Anion Gap 6 (3-11) BUN 27 H (6-23) mg/dl Creatinine 1.21 (0.6-1.4) mg/dl Est Cr Clr Drug Dosing 106.1 ml/min Est GFR ( Amer) 82.7 ml/min Est GFR (Non-Af Amer) 71.4 ml/min BUN/Creatinine Ratio 22.3 H (10-20) Glucose 135 H (70-99(Fasting)) mg/dl Calcium 9.7 (8.5-10.1) mg/dl Magnesium 2.3 (1.7-2.4) mg/dl Fld Lyme DNA (PCR) Pending Fluid Comment Synovial Source Synovial Color Synovial Appearance Synovial WBC (Auto) (0-200) /ul Synovial RBC (Auto) /uL Synovial Polynuclear % % Synovial Mononuclear % % Synovial Crystals Lyme Specimen Source Pending 07/06/22 07/06/22 Range/Units Unknown Unknown WBC (4.8-10.8) K/ul RBC (4.70-6.10) M/uL Hgb (14.0-18.0) g/dl Hct (42.0-52.0) % MCV (80.0-100.0) fL MCH (25.0-34.0) pg MCHC (32.0-36.0) g/dL RDW Std Deviation (36.4-46.3) fL RDW Coeff of Ciera (11.5-14.5) % Plt Count (130-400) K/uL MPV (9.4-12.4) fL Immature Gran % (Auto) % Neut % (Auto) % Lymph % (Auto) % [place] % (Auto) % Eos % (Auto) % Baso % (Auto) % Neut # (Auto) (1.40-6.50) K/uL Lymph # (Auto) (1.2-3.4) K/uL [place] # (Auto) (0.11-0.59) K/uL Eos # (Auto) (0-0.50) K/uL Baso # (Auto) (0-0.2) K/uL Immature Gran # (Auto) (0.01-0.20) K/uL Sodium (136-145) mmol/L Potassium (3.5-5.1) mmol/L Chloride (98-107) mmol/L Carbon Dioxide (21-32) mmol/L Anion Gap (3-11) BUN (6-23) mg/dl Creatinine (0.6-1.4) mg/dl Est Cr Clr Drug Dosing ml/min Est GFR ( Amer) ml/min Est GFR (Non-Af Amer) ml/min BUN/Creatinine Ratio (10-20) Glucose (70-99(Fasting)) mg/dl Calcium (8.5-10.1) mg/dl Magnesium (1.7-2.4) mg/dl Fld Lyme DNA (PCR) Fluid Comment Synovial Source Knee Synovial Color Straw Synovial Appearance Cloudy Synovial WBC (Auto) 24389 H (0-200) /ul Synovial RBC (Auto) < 2000 /uL Synovial Polynuclear % 93.7 % Synovial Mononuclear % 6.3 % Synovial Crystals Lyme Specimen Source
--- NOTE | 2022-07-07 12:40 | Discharge Summary ---
Discharge Summary Date of Service July 07, 2022 Notes For Next Care Provider Please refer patient back to Rheumatology for treatment of Gout. He previously saw Dr. Hartley. Follow up with final blood and synovial fluid cultures. NGTD on day of discharge. Medication Changes From Visit None Pt prescribed short prednisone taper and to complete a 7 day course of antibiotics for possible R ankle cellulitis with superimposed Gout. Admission HPI Per Admitting Provider HISTORY OF PRESENT ILLNESS: A 47-year-old male with past medical history significant for gouty arthropathy, chronic gouty tophi, compound heterozygous MTHFR mutation, history of pulmonary edema, pneumonia, history of sleep apnea, history of pulmonary embolism, history of SVT, hypertension, GERD, lumbar disc radiculopathy, obesity, history of ARDS, history of septic shock, history of malignant melanoma of the skin, presents with right ankle and knee pain. The patient has history of gout and he is on allopurinol 600mg p.o. daily. 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 He did not see the buzzsaw operator helper for last 3 years. He was asked to followup with o PCP and get referred again. For the last 2 days, he has noticed pain in the right ankle and knee, he could not put weight on the legs and having ambulatory dysfunction. For this reason, he came here. He was also in the ER, couple of days ago for feeling spasm of the right lower extremity. At that time, ultrasound was offered, but the patient declined and he was discharged. Today when he came in, he was having temp spike and his white count also went up from 8.5 on 07/03/2022 to 13.9 today. Right ankle is slightly swollen and erythematous and tender. Right knee has no erythema or swelling. There was some mild tenderness on the lateral aspect lateral aspect of the right knee. The patient is hemodynamically stable, resting comfortably. Denies any chest pain, no shortness of breath. No cough. The patient was given hydromorphone and received GI cocktail for GERD in the ER. Currently, denies any complaints. No nausea, no abdominal pain. Normal bowel and bladder movements. No headache, no dizziness, no blurred visions, no earache, no runny nose, no sore throat. No cough. Admission Exam Per Admitting Provider GENERAL: The patient is morbidly obese, not in acute distress. VITAL SIGNS: Temperature 37.7, pulse 70, respiratory rate 17, blood pressure 102/74, oxygen 97% on room air. HEENT: Pupils equal, round and reactive to light. Oral mucosa moist. NECK: No JVD. No neck masses. CARDIOVASCULAR: S1 and S2 heard. Regular rate and rhythm. No murmur, no gal lop. RESPIRATORY SYSTEM: Normal AP diameter. No accessory muscle use. No wheezing, no crackles. ABDOMEN: Soft, bowel sounds present, nontender, no distention. CENTRAL NERVOUS SYSTEM: Cranial nerves II-XII grossly intact, nonfocal. EXTREMITIES: Right knee is tender on palpation on the lateral aspect. The right ankle is swollen and erythematous in the medial aspect and tender. Principal Dx & Hospital Course #1 = Principal Diagnosis (1) Acute gout: (2) Effusion, right knee: (3) Hypokalemia: (4) HTN (hypertension): (5) LAKE on CPAP: Plan This is a 47-year-old male with significant past medical history of gouty arthropathy, compound heterozygous MTHFR mutation, LAKE on CPAP, HTN, history of PE, history of SVT, obesity and history of malignant melanoma who presented to ED secondary to right ankle and knee pain. On initial evaluation patient's Uric acid was 9.5, ESR 56, CRP 9.3 and wbc 13.93k. Pt admitted due to ambulatory dysfunction 2/2 acute gout flare and possible cellulitis. He was started on IV Solu-Medrol for possible gout flare as well as IV Rocephin due to concern for possible cellulitis. He had dramatic improvement of erythema to right ankle within 12 hours of treatment. He was seen and evaluated by orthopedics due to moderate right knee effusion. Patient's right knee was aspirated with significant WBCs, 31,830 along with negative birefringent crystals consistent with acute gout. He also treated conservatively with ice and elevation. His symptoms improved dramatically and so far blood cultures are showing no growth to date and synovial culture is no growth to date as well. Final results are still pending as well as Lyme testing from synovial fluid. Patient is stable to be discharged and on day of discharge is feeling significantly improved. He has been ambulating in room with walker. He will be discharged to home with prednisone taper, antibiotics and probiotics. He is encouraged to follow up with PCP and to re establish with rheumatology. Refills for all prescription meds were sent as he has been out for 2 weeks, especially allopurinol. This was resumed on day of admission. He offers no acute concerns on day of discharge. He is hemodynamically stable and pain is well controlled. Discharge Exam Gen: WD/WN, NAD, A&O x3 HEENT: Normocephalic, atraumatic, conjunctivae moist, sclerae anicteric, mucous membranes moist. Lung: Clear to Auscultation bilaterally, no wheezes/rales/rhonchi Heart: Regular rate, regular rhythm, no murmurs, rubs, or gallops Abdomen: Soft, NT, ND +BS x 4 Extremities: R knee suprapatellar effusion, no warmth or erythema, R ankle + warmth, medial malleolar soft tissue swelling much improved and no longer painful to touch Skin: Warm, no rash, negative turgor. Updated Medication List Medication Instructions Recorded Confirmed Type Saccharomyces boulardii 250 mg 250 mg PO DAILY #7 caps 07/07/22 Rx capsule (Florastor) allopurinol 300 mg tablet 600 mg PO DAILY 60 days #120 tabs 07/07/22 Rx amlodipine 10 mg tablet 10 mg PO QAM 30 days #30 tabs 07/07/22 Rx cephalexin 500 mg capsule 500 mg PO Q6H #20 caps 07/07/22 Rx pantoprazole 40 mg tablet,delayed 40 mg PO DAILY 30 days #30 tabs 07/07/22 Rx release prednisone 10 mg tablet See Taper PO DIRECTED #20 tabs 07/07/22 Rx Hospital Stay Data Consultations 07/06/22 02:41 ED Decision to Admit Stat 07/06/22 09:01 Consult Orthopedic Surgery Routine Assessment & Plan (1) Acute right ankle pain: Plan: Ankle pain has improved since starting Solu-Medrol. He has no edema or erythema surrounding the ankle. Encouraged continuing with active range of motion shown alphabet exercise. He may continue with weightbearing as tolerated using walker or assistive device if needed per PT. We will continue to follow. Continue the IV Solu-Medrol and gout treatment as per the primary service. Present on Admission?: Yes (2) Effusion, right knee: Plan: Knee pain has greatly improved since admission and status post arthrocentesis on 07/06/22. He has no findings of effusion on exam today. He is tolerating range of motion and weightbearing activities. Synovial fluid did show crystals that are consistent with gout. Lyme study is still pending. Gram stain final was negative. Aerobic and anaerobic cultures are still pending. He can continue with range of motion weightbearing as tolerated with assistive device as appropriate per PT. He will continue with Solu-Medrol and gout treatment per primary. We will continue to follow cultures. No surgical intervention is planned at this time. Diagnostic Imagining Performed Ankle X-Ray 07/05/22 23:21 RIGHT ANKLE 3 VIEWS HISTORY: R ankle pain and edema COMPARISON: None. FINDINGS: There is no fracture or dislocation. Mild diffuse soft tissue swelling. There are mild to moderate degenerative changes within the ankle and hindfoot. No erosive changes identified. No soft tissue calcifications. Small po sterior calcaneal spur is noted. No radiopaque foreign bodies. IMPRESSION: Degenerative changes within the right ankle. No acute fractures. ACT 112: Negative or not required by law. Electronically signed by: Roberto Hannon M.D. 07/06/2022 8:03 AM Venous Doppler Study 07/05/22 23:21 RIGHT LOWER EXTREMITY VENOUS DOPPLER HISTORY: R leg pain COMPARISON STUDY: None. FINDINGS: There is normal compressibility, flow, and augmentation within the right lower extremity deep venous system. IMPRESSION: No DVT within the right lower extremity ACT 112: Negative or not required by law. Electronically signed by: Roberto Hannon M.D. 07/06/2022 7:[address] 07/06/22 01:[address] with contrast CT DOSE: 177.23 mGy.cm HISTORY: R ankle erythema, edema, leukocytosis, hx gout TECHNIQUE: Multiaxial CT images of the right ankle were performed and reformatted in the sagittal and coronal plane following the intravenous administration of contrast. A dose lowering technique was utilized adhering to the principles of ALARA. COMPARISON: Right ankle radiograph 07/05/2022. FINDINGS: No acute fracture or dislocation within the right ankle. No erosive changes. Mild subcutaneous edema. There is mild to moderate osteoarthritis at the ankle joint. Irregularity at the medial malleolus likely represents old avulsion injuries. No erosive changes identified. No soft tissue masses or calcifications. There are mild to moderate degenerative changes within the midfoot. Small plantar and posterior calcaneal spurs are noted. IMPRESSION: 1. No acute fracture or dislocation within the right ankle. 2. No erosive changes. 3. No tophaceous deposits identified. ACT 112: Negative or not required by law. Electronically signed by: Roberto Hannon M.D. 07/06/2022 7:22 AM Knee X-Ray 07/06/22 06:15 XR knee RT 3V CLINICAL HISTORY: right knee pain COMPARISON STUDY: Right knee 01/28/2006. FINDINGS: There is mild tricompartmental osteoarthritis which has progressed in the interval. There is a large knee effusion, unchanged. No erosive changes. No acute fracture or dislocation. No radiopaque foreign bodies. IMPRESSION: 1. Large right knee effusion, unchanged. 2. Mild tricompartmental osteoarthritis. ACT 112: Negative or not required by law. Electronically signed by: Roberto Hannon M.D. 07/06/2022 8:51 AM Pending Results Patient Have Any Pending Studies at Discharge: Yes Discharge Instructions Given to Patient (Per Discharging Provider) MEDICATION CHANGES: Prednisone taper 40 mg daily x2 days 30 mg daily x2 days 20 mg daily x2 days 10 mg daily x2 days and then stop Keflex 500 mg 4 times a day for additional 5 days for cellulitis, you can begin this on 07/08/2022 and you received a dose of IV antibiotics in hospital on day of discharge. Florastor 250 mg once daily for 7 days. This is for Gut health while you are on antibiotic. SUMMARY OF TEST RESULTS: You were admitted for acute right knee and ankle pain. Your Uric acid level was high. Orthopedics saw you in the hospital and aspirated your Right Knee. Fluid from your R knee was consistent with acute Gout. There was concern for possible cellulitis to your right ankle so you are being treated with antibiotics. Your Potassium was low and this was replaced. PENDING TEST RESULTS: Final Blood Culture Final Culture from fluid aspirated from Right Knee. Lyme test from fluid from Right Knee. RECOMMENDATIONS FOR FOLLOW-UP: Please follow up with Primary Care Provider and follow up pending culture results. Recommend completing prednisone taper and antibiotic as prescribed. Continue elevation and ice to R ankle and Knee. Recommend weight bearing as tolerated on Right lower extremity. You may return to work when you feel you are able. You have a work excuse through 07/13/22. Please ask your Primary Care Provider for a referral to Rheumatology. Continue all other prescribed medications. OTHER INSTRUCTIONS: Seek medical attention if you have: * temperature above 101 * chest pain or trouble breathing * abdominal pain, nausea, vomiting * diarrhea, dark stools or bloody stools * any unanswered questions or concerns Call 911 if symptoms are severe. Please take good care of yourself. It has been a pleasure taking care of you. Please take care of yourself. If you have any questions regarding your recent hospitalization please contact [facility] and request Ramona Harperist @ [phone]. Sindy Khoury PA-C Total Time Total Time Spent Total Time Spent (In Minutes): 60 minutes Supervising Physician Co-Signing Physician Notes Pt seen and examined by me , care coordinated w/ B. KACI Khoury, pls refer to her note above for further detail. Pt is a 47 yo M admitted for gout flare, and possible cellulitis. He was found to have effusion in right knee, and erythematous ankle. Septic joint to be ruled out. Orthopedics consulted, and patient underwent right knee aspiration. IV ceftriaxone was started on admission. Right ankle erythema improved significantly overnight. Pain also improved and patient is now able to move joints, and even ambulate w/ walker. Cultures are so far negative, final cultures are still pending. Patient is much more comfortable today, he is awake alert oriented answering questions appropriately. Denies any fevers chills. Lungs are clear to auscultation, heart sounds regular, abdomen soft nontender nondistended. Much improved joint movement. Allopurinol was restarted during this admission and prescription will be sent to patient. PCP follow-up arranged. He will be discharged to home with prednisone taper, antibiotics and probiotics. Recommend rheumatology referral. MD Jaylin
[2022-07-08 18:33] LABS: Lyme DNA PCR CSF or Synovial Not Detected (Not Detected); Lyme DNA Source SYNOVIAL FLUID
== END 2022-07-07 16:34 | disposition home or self-care (01) | DRG 554 ==
LOC: ED 22:24 → SUATTDRO 07-06 04:24 → 3E 07-06 04:24 → INTOOBSV 07-06 04:24 → 3E 07-06 05:46